=== PATIENT | female | born 1950 | race Caucasian/White ===

== ENCOUNTER → 2022-08-20 11:27 | Outpatient (BNVA) | payer MEDICARE, OTHER, SELFPAY | PROVIDERS: PCP Physician Assistant; Visit Provider Student in an Organized Health Care Education/Training Program | DX: M06.9 Rheumatoid arthritis, unspecified (principal); M81.0 Age-related osteoporosis without current pathological fracture; Z79.631 Long term (current) use of antimetabolite agent | CPT/HCPCS: 99202 ==

== ENCOUNTER → 2022-11-08 09:46 | Outpatient (BNVA) | payer MEDICARE, OTHER, SELFPAY | PROVIDERS: PCP Physician Assistant; Visit Provider Student in an Organized Health Care Education/Training Program | DX: M06.9 Rheumatoid arthritis, unspecified (principal); M81.0 Age-related osteoporosis without current pathological fracture; Z79.631 Long term (current) use of antimetabolite agent | CPT/HCPCS: 99212 ==

== ENCOUNTER 2023-02-21 07:51 | Outpatient (AMB) | payer MEDICARE, OTHER, SELFPAY ==
--- NOTE | 2023-02-21 07:54 | A.OFFVIS_ITS ---
Intake Vital Signs 02/21/23 07:55 Height 5 ft 7 in Weight 243 lb 9.773 oz BMI 38.2 BP 122/74 Blood Pressure Location Lt brachial Position Sitting Pulse 92 Pulse Source Pulse Oximeter Temp 97.1 F Temp Source Skin Pulse Oximetry (%) 95 Intake Visit Reasons: RA Intake Note: * Pt seen today for RA follow up. * Denies new or increased joint pain. * Reports recent tick bite end of January, given doxy for 10 days finished 02/07/23. Thermometer Production Worker Required: No Accompanied by: Self / Same As Patient Allergies epinephrine Allergy (Intermediate, Verified 02/21/23 07:57) shaky, palpitations,ineffective Medication List - Last Reconciled 02/21/23 by Mima Domingo MD acetaminophen (Tylenol Extra Strength) 500 mg PO Q6H PRN calcium carbonate (Calcium) 600 mg PO DAILY latanoprost 0.005% 1 drp ophthalmic (eye) QPM leucovorin calcium 10 mg (2 x 5 mg) PO QWEEK methotrexate sodium 17.5 mg (7 x 2.5 mg) PO QWEEK hvqibpvi-mozikrq-euvd-lutein 1 tab PO DAILY prednisone 3 mg (3 x 1 mg) PO DAILY tocilizumab (Actemra ACTPen) 162 mg (0.9 mL) subcut Q2W HPI HPI Comments History of Present Illness Details 72-year-old female with seropositive deforming RA returns for follow- up. She has started Actemra after last visit. Patient states that she feels about the same overall. She gets intermittent swelling in aches that is worse with warm weather. She is tolerating methotrexate and Actemra well. Initial history: This is a 72-year-old female with erosive deforming RA who presents as a new patient. 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 Patient used to see Dr. March for many years followed by Dr. Damon more recently. She was diagnosed with RA in June of 2000. She was initially started on methotrexate and prednisone. They were ineffective she was then switched to infusions at patient could not specify. She was doing very well on Enbrel from 2001 until 2013. There was a lapse in medical follow-up. From [id number]. In 2018 she was started on Orencia and methotrexate was added in 2019. Patient states that her RA is doing well overall. She states she no longer has those severe flares. She has not had a major flare in many years. Her main complaint is her bilateral feet pain. This started 4-5 years ago. She has bilateral foot deformities. She also has calluses at the bottom of her feet. She was evaluated by Podiatry and she gets these calluses shaved off every once in a while and she wears shoes with arch support. [facility] Medical History Anxiety Encounter for screening for other viral diseases Major depression Ocular hypertension Open-angle glaucoma Premature menopause Psychophysiologic disorder Rheumatoid arthritis Tobacco abuse Surgical History History of cataract surgery Family History Mother Diabetes Father Lung cancer Bone cancer Osteoporosis Sister Ovarian cancer Social History Household Members: Other Household Members Other:: alone Housing: Apartment Patient Tobacco Use Status: Former Tobacco user Years Smoked: 44 years Current occupational status: retired Review of Systems Card Denies dyspnea Resp Denies dyspnea Musc Reports deformity, Reports arthralgias and Reports stiffness Physical Exam Vital Signs: Last Vital Signs Temp 97.1 F 02/21/23 07:55 Pulse 92 02/21/23 07:55 BP 122/74 02/21/23 07:55 Pulse Ox 95 02/21/23 07:55 BMI result Body Mass Index 38.2 Const General: cooperative, healthy appearing, comfortable and no acute distress Nutritional Appearance: obese Orientation/consciousness: patient oriented x3 Limitations: no limitations HEENT Head: Yes normocephalic and Yes atraumatic Mouth: moist mucous membranes Resp Effort & Inspection: normal respiratory effort and able to speak in complete sentences Auscultation: clear to auscultation bilaterally Cardio Rate: regular rate Rhythm: regular rhythm Neuro General: patient oriented x3 Extrem Other: Hands: Significant bilateral RA deformities with ulnar deviation, MCP subluxation and MCP synovial thickening, no tenderness to palpation. Negative MCP squeeze test Feet: Significant bilateral RA deformity with fibular deviation and hammertoes as well as claw feet, calluses at the bottom of her feet, slightly tender Results Reviewed Results Reviewed: DEXA 05/2019:? Hip -3.1 Bilateral foot x-rays 01/2022? Impression:? No acute bone abnormality.? Subluxation of the digits, osteopenia and calcaneal spurring, likely related to the patient's rheumatoid arthritis Bilateral hand x-rays 01/2022? Impression:? No acute bone abnormality.? Bilateral degenerative changes including subluxation which can be seen with rheumatoid arthritis.? The distribution has not significantly changed since 2018 however the severity appears slightly increased. Labs 01/2022? CRP 11.8 (<9) CMP unremarkable? ESR 24? CBC unremarkable QuantiFERON gold negative Labs 08/30/2022 ESR 30 CRP 15.7 (0-4.0) Hepatitis panel negative CMP unremarkable? CBC unremarkable Assessment & Plan Assessment & Plan (1) Rheumatoid arthritis: Comment: +++RF+++CCPDiagnosed 06/2020 erosive Prednisone and methotrexate started in 1999, ineffective Switched to infusions which are not specified, not effective Enbrel started 2001 until 2013 effective until it has lost its efficacy and patient developed a psoriasis like rash Orencia since July of 2018 Methotrexate added in 2019 Code(s): M06.9 - Rheumatoid arthritis, unspecified Qualifiers: Rheumatoid arthritis location: multiple sites Rheumatoid factor presence: unspecified presence Qualified Code(s): M06.9 - Rheumatoid arthritis, unspecified Plan: 72-year-old female with seropositive deforming RA presents for follow-up. Doing better since Actemra started 3 months ago. Improved overall stiffness and normalization of inflammatory markers. Continue methotrexate 17.5 mg once weekly and Actemra 162 mg every other week Continue prednisone 3 mg daily, plan to taper next visit Will discuss screening for ILD next visit Labs before next visit in 3 months (2) Methotrexate, care home, current use: Code(s): Z79.631 - intermediate frame tender (current) use of antimetabolite agent Plan: Side effects of methotrexate were discussed with the patient in detail including oral ulcers, elevated LFTs, abdominal discomfort, and possible pancytopenia is. Will monitor patient for side effects with frequent lab work. Advised patient to take Leucovorin once weekly (3) Osteoporosis: Comment: DEXA 2018 T-score-3.1 left hip Alendronate stopped due to GI upset DEXA 01/24 T-score -2.8 Code(s): M81.0 - Age-related osteoporosis without current pathological fracture Qualifiers: Osteoporosis type: age-related Presence of current pathological fractu re: without current pathological fracture Qualified Code(s): M81.0 - Age- related osteoporosis without current pathological fracture Plan: Most recent DEXA scan shows osteoporosis. Patient will need antiresorptive treatment as she has osteoporosis in addition to long-term use of steroids and rheumatoid arthritis. Discussed risks and benefits of Reclast. Patient agreed to proceed. Will start prior authorization for Reclast Vitamin-D level normal 02/23 Plan I spent 29 minutes reviewing patient's chart, evaluating patient, ordering diagnostic workup, counseling patient and documenting in the chart Orders: Orders Comprehensive Met. Panel 3 Months M06.9 - Rheumatoid arthritis, unspecified C Reactive Protein 3 Months M06.9 - Rheumatoid arthritis, unspecified Complete Blood Count Auto Diff 3 Months M06.9 - Rheumatoid arthritis, unspecified Erythrocyte Sedimentation Rate 3 Months M06.9 - Rheumatoid arthritis, unspecified Coding Level of Care Code Est Pt Level 4 (41742) Diagnoses Rheumatoid arthritis M06.9 Rheumatoid arthritis location: multiple sites Rheumatoid factor presence: unspecified presence Methotrexate, care home, current use Z79.631 Osteoporosis M81.0 Osteoporosis type: age-related Presence of current pathological fracture: without current pathological fracture
[2023-02-21 07:55] VITALS: BP 122/74; PULSE 92; TEMP 36.2; O2SAT 95; BMI 38.2
== END 2023-02-21 08:30 | disposition home or self-care (01) ==
PROVIDERS: PCP Physician Assistant; Visit Provider Student in an Organized Health Care Education/Training Program
DX: M06.9 Rheumatoid arthritis, unspecified (principal); Z79.631 Long term (current) use of antimetabolite agent; M81.0 Age-related osteoporosis without current pathological fracture
CPT/HCPCS: 99214

== ENCOUNTER → 2023-02-21 07:51 | Outpatient (BNVA) | payer MEDICARE, OTHER, SELFPAY | PROVIDERS: PCP Physician Assistant; Visit Provider Student in an Organized Health Care Education/Training Program | DX: M06.9 Rheumatoid arthritis, unspecified (principal); M81.0 Age-related osteoporosis without current pathological fracture; Z79.52 Long term (current) use of systemic steroids; Z79.631 Long term (current) use of antimetabolite agent | CPT/HCPCS: 99212 ==

== ENCOUNTER 2023-07-04 13:26 | Outpatient (AMB) | payer MEDICARE, OTHER, SELFPAY ==
--- NOTE | 2023-07-04 13:27 | A.OFFVIS_ITS ---
Intake Vital Signs 07/04/23 13:28 Height 5 ft 7 in Weight 250 lb 3.594 oz BMI 39.2 BP 134/70 Blood Pressure Location Rt brachial Position Sitting Pulse 100 Pulse Source Pulse Oximeter Pulse Oximetry (%) 97 Oxygen Delivery Method Room Air Intake Visit Reasons: RA Intake Note: Pt last seen 02/21/23, presents today for follow up and test results. Actemra 162 mg, mtx 17.5mg and prednisone 3mg daily. 04/23/23 appt for reclast infusion was cancelled due to pt illness, she would like to wait until the spring time. Cable Operator Required: No Accompanied by: Self / Same As Patient Allergies epinephrine Allergy (Intermediate, Verified 07/04/23 13:35) shaky, palpitations,ineffective Medication List - Last Reconciled 07/04/23 by Mima Domingo MD acetaminophen (Tylenol Extra Strength) 500 mg PO Q6H PRN Actemra ACTPen (tocilizumab) 162 mg (0.9 mL) subcut Q2W NS calcium carbonate (Calcium) 600 mg PO DAILY leucovorin calcium 10 mg (2 x 5 mg) PO QWEEK methotrexate sodium 17.5 mg (7 x 2.5 mg) PO QWEEK rrfcquxu-mtnqpqp-ecvm-lutein 1 tab PO DAILY prednisone 3 mg (3 x 1 mg) PO DAILY HPI HPI Comments History of Present Illness Details 72-year-old female with seropositive def orming RA returns for follow- up. She is on methotrexate 7 tabs once weekly, Leucovorin , prednisone 3 mg daily and Actemra 162 mg every other week. She states that she was doing well overall until 1 week ago when she started having significant pain in her MCPs 2nd and 3rd MCPs bilaterally. About a week ago she twisted her back while getting out of the shower, she has been having right lower back pain for the past few days but it is improving now. She denies any cough or shortness of breath. Denies any alcohol consumption. Except for 1 beer 2 weeks ago Initial history: This is a 72-year-old female with erosive deforming RA who presents as a new patient. 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 Patient used to see Dr. March for many years followed by Dr. Damon more recently. She was diagnosed with RA in June of 2000. She was initially started on methotrexate and prednisone. They were ineffective she was then switched to infusions at patient could not specify. She was doing very well on Enbrel from 2001 until 2013. There was a lapse in medical follow-up. From [id number]. In 2018 she was started on Orencia and methotrexate was added in 2019. Patient states that her RA is doing well overall. She states she no longer has those severe flares. She has not had a major flare in many years. Her main complaint is her bilateral feet pain. This started 4-5 years ago. She has bilateral foot deformities. She also has calluses at the bottom of her feet. She was evaluated by Podiatry and she gets these calluses shaved off every once in a while and she wears shoes with arch support. [facility] Medical History (Updated 07/04/23 @ 14:10 by Mima Domingo MD) Encounter for screening for other viral diseases Psychophysiologic disorder Premature menopause Rheumatoid arthritis Open-angle glaucoma Ocular hypertension Tobacco abuse Anxiety Major depression Surgical History History of cataract surgery Family History Mother Diabetes Father Lung cancer Bone cancer Osteoporosis Sister Ovarian cancer Social History Household Members: Other Household Members Other:: alone Housing: Apartment Patient Tobacco Use Status: Former Tobacco user Years Smoked: 44 years Current occupational status: retired Review of Systems Card Denies dyspnea Resp Denies cough and Denies dyspnea Musc Reports back pain, Reports deformity, Reports arthralgias and Reports stiffness Physical Exam Vital Signs: Last Vital Signs Pulse 100 07/04/23 13:28 BP 134/70 07/04/23 13:28 Pulse Ox 97 07/04/23 13:28 Oxygen Delivery Method Room Air 07/04/23 13:28 BMI result Body Mass Index 39.2 Const General: cooperative, healthy appearing, comfortable and no acute distress Nutritional Appearance: obese Orientation/consciousness: patient oriented x3 Limitations: no limitations HEENT Head: Yes normocephalic and Yes atraumatic Mouth: moist mucous membranes Resp Effort & Inspection: normal respiratory effort and able to speak in complete sentences Auscultation: clear to auscultation bilaterally Cardio Rate: regular rate Rhythm: regular rhythm Neuro General: patient oriented x3 Extrem Other: Hands: Significant bilateral RA deformities with ulnar deviation, reducible, MCP subluxation and MCP synovial thickening. Today patient has bilateral 2nd and 3rd MCP swelling and tenderness. Feet: Significant bilateral RA deformity with fibular deviation and hammertoes as well as claw feet, calluses at the bottom of her feet, slightly tender Results Reviewed Results Reviewed: DEXA 05/2019:? Hip -3.1 Bilateral foot x-rays 01/2022? Impression:? No acute bone abnormality.? Subluxation of the digits, osteopenia and calcaneal spurring, likely related to the patient's rheumatoid arthritis Bilateral hand x-rays 01/2022? Impression:? No acute bone abnormality.? Bilateral degenerative changes including subluxation which can be seen with rheumatoid arthritis.? The distribution has not significantly changed since 2018 however the severity appears slightly increased. Labs 01/2022? CRP 11.8 (<9) CMP unremarkable? ESR 24? CBC unremarkable QuantiFERON gold negative Labs 08/30/2022 ESR 30 CRP 15.7 (0-4.0) Hepatitis panel negative CMP unremarkable? CBC unremarkable Assessment & Plan Assessment & Plan (1) Rheumatoid arthritis: Comment: +++RF+++CCPDiagnosed 06/2020 erosive Prednisone and methotrexate started in 1999, ineffective Switched to infusions which are not specified, not effective Enbrel started 2001 until 2013 effective until it has lost its efficacy and patient developed a psoriasis like rash Orencia since July of 2018. DC 11/2022 Methotrexate added in 2019 Actemra 11/2022 effective Code(s): M06.9 - Rheumatoid arthritis, unspecified Qualifiers: Rheumatoid arthritis location: multiple sites Rheumatoid factor presence: unspecified presence Qualified Code(s): M06.9 - Rheumatoid arthritis, unspecified Plan: 72-year-old female with seropositive deforming RA presents for follow-up. On Actemra 162 mg every other week, methotrexate 17.5 mg weekly, prednisone 3 mg daily, Leucovorin 10 mg weekly. Doing well overall except for a flare-up that started last week. Her inflammatory markers are normal. Will start a short prednisone taper. Advised patient to go back to her 3 mg of prednisone months taper is completed Continue same medications otherwise. Will consider advancing Actemra to weekly dosing if patient has recurrent flares Discussed RA ILD screening. Will order a PFT Labs before next visit in 3 months (2) Methotrexate, snf, current use: Code(s): Z79.631 - MCFP (current) use of antimetabolite agent Plan: Side effects of methotrexate were discussed with the patient in detail including oral ulcers, elevated LFTs, abdominal discomfort, and possible pancytopenia is. Will monitor patient for side effects with frequent lab work. Advised patient to take Leucovorin once weekly (3) Osteoporosis: Comment: DEXA 2018 T-score-3.1 left hip Alendronate [id number] stopped due to GI upset DEXA 01/24 T-score -2.8 Code(s): M81.0 - Age-related osteoporosis without current pathological fracture Qualifiers: Osteoporosis type: age-related Presence of current pathological fracture: without current pathological fracture Qualified Code(s): M81.0 - Age- related osteoporosis without current pathological fracture Plan: Most recent DEXA scan shows osteoporosis. Patient will need antiresorptive treatment as she has osteoporosis in addition to long-term use of steroids and rheumatoid arthritis. Reclast was approved. Patient canceled her scheduled infusion as she was not feeling well. Advised patient to reschedule Vitamin-D level normal 02/23 (4) Transaminitis: Code(s): R74.01 - Elevation of levels of liver transaminase levels Plan: Minimal ALT elevation. No recent alcohol consumption. Will monitor. If liver enzymes remain elevated, will lower methotrexate dose (5) Immunization counseling: Code(s): Z71.85 - Encounter for immunization safety counseling Plan: Discussed ACR vaccination guidelines for adults with autoimmune rheumatic disease. Patient received the new COVID booster and flu vaccine for this season. She is also up-to-date on pneumonia vaccine and shingrix vaccines. Patient inquired about RSV vaccine. Advised patient to hold 1 methotrexate dose after RSV vaccination Plan I spent 45 minutes reviewing patient's chart, evaluating patient, ordering diagnostic workup, counseling patient and documenting in the chart Orders: Orders C Reactive Protein 3 Months Z79.631 - MCFP (current) use of antimetabolite agent Erythrocyte Sedimentation Rate 3 Months Z79.631 - salvage determiner (current) use of antimetabolite agent PFT pulmonary function test Today R06.02 - Shortness of breath Complete Blood Count Auto Diff 3 Months Z79.631 - MCFP (current) use of antimetabolite agent Comprehensive Met. Panel 3 Months Z79.631 - salvage determiner (current) use of antimetabolite agent Medications: New prednisone Take 2 tabs daily for 1 week then 1 tab daily for 1 week then stop 21 tabs 0RF Coding Level of Care Code Est Pt Level 5 (00240) Diagnoses Rheumatoid arthritis involving multiple sites, unspecified whether rheumatoid factor present M06.9 Rheumatoid arthritis location: multiple sites Rheumatoid factor presence: unspecified presence Methotrexate, predatory animal exterminator, current use Z79.631 Age-related osteoporosis without current pathological fracture M81.0 Osteoporosis type: age-related Presence of current pathological fracture: without current pathological fracture Transaminitis R74.01 Immunization counseling Z71.85
[2023-07-04 13:28] VITALS: BP 134/70; PULSE 100; O2SAT 97; BMI 39.2
== END 2023-07-04 13:58 | disposition home or self-care (01) ==
PROVIDERS: PCP Physician Assistant; Visit Provider Student in an Organized Health Care Education/Training Program
DX: M06.09 Rheumatoid arthritis without rheumatoid factor, multiple sites (principal); Z79.631 Long term (current) use of antimetabolite agent; M81.0 Age-related osteoporosis without current pathological fracture; R74.01 Elevation of levels of liver transaminase levels; Z71.85 Encounter for immunization safety counseling
CPT/HCPCS: 99215

== ENCOUNTER → 2023-07-04 13:26 | Outpatient (BNVA) | payer MEDICARE, OTHER, SELFPAY | PROVIDERS: PCP Physician Assistant; Visit Provider Student in an Organized Health Care Education/Training Program | DX: M06.9 Rheumatoid arthritis, unspecified (principal); M81.0 Age-related osteoporosis without current pathological fracture; R74.01 Elevation of levels of liver transaminase levels; Z79.631 Long term (current) use of antimetabolite agent; Z71.85 Encounter for immunization safety counseling | CPT/HCPCS: 99212 ==

== ENCOUNTER 2023-10-15 13:28 | Outpatient (AMB) | payer MEDICARE, OTHER, SELFPAY ==
[2023-10-15 13:30] VITALS: BP 118/62; PULSE 101; O2SAT 98; BMI 39.5
--- NOTE | 2023-10-15 13:30 | MHC.OFFVIS ---
Intake Vital Signs 10/15/23 13:30 Height 5 ft 7 in Weight 252 lb 6.868 oz BMI 39.5 BP 118/62 Blood Pressure Location Lt brachial Position Sitting Pulse 101 H Pulse Source Pulse Oximeter Pulse Oximetry (%) 98 Oxygen Delivery Method Room Air Intake Visit Reasons: RA Intake Note: Patient last seen 07/04/23 presents today for follow up and test results. S/P covid in July. Reports Glaucoma, pressure in eyes increasing; using drops and will have laser tx. Follows with [facility] in [place]. 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: No Accompanied by: Self / Same As Patient Allergies epinephrine Allergy (Intermediate, Verified 10/15/23 13:43) shaky, palpitations,ineffective Medication List - Last Reconciled 10/15/23 by Mima Domingo MD acetaminophen (Tylenol Extra Strength) 500 mg PO Q6H PRN Actemra ACTPen (tocilizumab) 162 mg (0.9 mL) subcut Q2W NS calcium carbonate (Calcium) 600 mg PO DAILY latanoprost 0.005% 1 drp ophthalmic (eye) DAILY leucovorin calcium 10 mg (2 x 5 mg) PO QWEEK methotrexate sodium 17.5 mg (7 x 2.5 mg) PO QWEEK rjqichbm-kqlierj-fruq-lutein 1 tab PO DAILY prednisone 3 mg (3 x 1 mg) PO DAILY HPI HPI Comments History of Present Illness Details 73-year-old female with seropositive deforming RA returns for follow-up. She is on methotrexate 7 tabs once weekly, Leucovorin weekly, prednisone 3 mg daily and Actemra 162 mg every other week. She states that in July she had COVID infection and was quite sick at home for at least 3 weeks. She skipped 1 dose of her Actemra. Currently she feels better overall. She denies any joint pain or swelling. She noticed however that her left hand is turning outwards. She denies any swelling in the hands. She has noted some right ankle and calf swelling. Without pain. She has not done the PFTs yet as she was recovering from COVID. Now she feels that her breathing is almost back to baseline. She denies any cough. She has not scheduled her Reclast infusion yet. Initial history: This is a 72-year-old female with erosive deforming RA who presents as a new patient. 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 Patient used to see Dr. March for many years followed by Dr. Damon more recently. She was diagnosed with RA in June of 2000. She was initially started on methotrexate and prednisone. They were ineffective she was then switched to infusions at patient could not specify. She was doing very well on Enbrel from 2001 until 2013. There was a lapse in medical follow-up. From [id number]. In 2018 she was started on Orencia and methotrexate was added in 2019. Patient states that her RA is doing well overall. She states she no longer has those severe flares. She has not had a major flare in many years. Her main complaint is her bilateral feet pain. This started 4-5 years ago. She has bilateral foot deformities. She also has calluses at the bottom of her feet. She was evaluated by Podiatry and she gets these calluses shaved off every once in a while and she wears shoes with arch support. [facility] Medical History Encounter for screening for other viral diseases Psychophysiologic disorder Premature menopause Rheumatoid arthritis Open-angle glaucoma Ocular hypertension Tobacco abuse Anxiety Major depression Surgical History History of cataract surgery Family History Mother Diabetes Father Lung cancer Bone cancer Osteoporosis Sister Ovarian cancer Social History Household Members: Other Household Members Other:: alone Housing: Apartment Patient Tobacco Use Status: Former Tobacco user Years Smoked: 44 years Current occupational status: retired Review of Systems Card Denies dyspnea Resp Denies cough and Denies dyspnea Musc Reports deformity, Reports joint swelling and Reports stiffness Physical Exam Vital Signs: Last Vital Signs Pulse 101 H 10/15/23 13:30 BP 118/62 10/15/23 13:30 Pulse Ox 98 10/15/23 13:30 Oxygen Delivery Method Room Air 10/15/23 13:30 BMI result Body Mass Index 39.5 Const General: cooperative, healthy appearing, comfortable and no acute distress Nutritional Appearance: obese Orientation/consciousness: patient oriented x3 Limitations: no limitations HEENT Head: Yes normocephalic and Yes atraumatic Mouth: moist mucous membranes Resp Effort & Inspection: normal respiratory effort and able to speak in complete sentences Auscultation: clear to auscultation bilaterally Cardio Rate: regular rate Rhythm: regular rhythm Neuro General: patient oriented x3 Extrem Other: Hands: Significant bilateral RA deformities with ulnar deviation, reducible, MCP subluxation and MCP synovial thickening. There is no active synovitis however Feet: Significant bilateral RA deformity with fibular deviation and hammertoes as well as claw feet, calluses at the bottom of her feet, slightly tender Mild right leg swelling, mild right leg warmth, no erythema or tenderness Results Reviewed Results Reviewed: DEXA 05/2019:? Hip -3.1 Bilateral foot x-rays 01/2022? Impression:? No acute bone abnormality.? Subluxation of the digits, osteopenia and calcaneal spurring, likely related to the patient's rheumatoid arthritis Bilateral hand x-rays 01/2022? Impression:? No acute bone abnormality.? Bilateral degenerative changes including subluxation which can be seen with rheumatoid arthritis.? The distribution has not significantly changed since 2018 however the severity appears slightly increased. Labs 01/2022? CRP 11.8 (<9) CMP unremarkable? ESR 24? CBC unremarkable QuantiFERON gold negative Labs 08/30/2022 ESR 30 CRP 15.7 (0-4.0) Hepatitis panel negative CMP unremarkable? CBC unremarkable Assessment & Plan Assessment & Plan (1) Rheumatoid arthritis: Comment: +++RF+++CCPDiagnosed 06/2020 erosive Prednisone and methotrexate started in 1999, ineffective Switched to infusions which are not specified, not effective Enbrel started 2001 until 2013 effective until it has lost its efficacy and patient developed a psoriasis like rash Orencia since July of 2018. DC 11/2022 Methotrexate added in 2019 Actemra 11/2022 effective Code(s): M06.9 - Rheumatoid arthritis, unspecified Qualifiers: Rheumatoid arthritis location: multiple sites Rheumatoid factor presence: unspecified presence Qualified Code(s): M06.9 - Rheumatoid arthritis, unspecified Plan: 73-year-old female with seropositive deforming RA presents for follow-up. On Actemra 162 mg every other week, methotrexate 17.5 mg weekly, prednisone 3 mg daily, Leucovorin 10 mg weekly. Doing well overall. No active synovitis on exam. Patient has noticed slightly progressive ulnar deviation of left hand fingers. We discussed hand surgery evaluation. Patient was not interested at this time. 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 Will monitor patient for side effects with frequent lab work. Advised patient to take Leucovorin once weekly (3) Osteoporosis: Comment: DEXA 2018 T-score-3.1 left hip Alendronate [id number] stopped due to GI upset DEXA 01/24 T-score -2.8 Code(s): M81.0 - Age-related osteoporosis without current pathological fracture Qualifiers: Osteoporosis type: age-related Presence of current pathological fracture: without current pathological fracture Qualified Code(s): M81.0 - Age-related osteoporosis without current pathological fracture Plan: Most recent DEXA scan shows osteoporosis. Patient will need antiresorptive treatment as she has osteoporosis in addition to long-term use of steroids and rheumatoid arthritis. Reclast was approved. Patient canceled her scheduled infusion as she was not feeling well. Advised patient to reschedule Vitamin-D level normal 02/23 (4) Transaminitis: Code(s): R74.01 - Elevation of levels of liver transaminase levels Plan: Resolved (5) Right leg swelling: Code(s): M79.89 - Other specified soft tissue disorders Plan: Order bilateral lower extremity venous duplex to rule out DVT Plan I spent 45 minutes reviewing patient's chart, evaluating patient, ordering diagnostic workup, counseling patient and documenting in the chart Orders: Orders C Reactive Protein 3 Months M06.9 - Rheumatoid arthritis, unspecified, Z79.631 - media senior recruiter (current) use of antimetabolite agent US venous duplex LE BI Today I82.401 - Acute embolism and thrombosis of unspecified deep veins of right lower extremity Complete Blood Count Auto Diff 3 Months M06.9 - Rheumatoid arthritis, unspecified, Z79.631 - [facility] (current) use of antimetabolite agent Comprehensive Met. Panel 3 Months M06.9 - Rheumatoid arthritis, unspecified, Z79.631 - media senior recruiter (current) use of antimetabolite agent Erythrocyte Sedimentation Rate 3 Months M06.9 - Rheumatoid arthritis, unspecified, Z79.631 - media senior recruiter (current) use of antimetabolite agent Medications: Refilled Actemra ACTPen (tocilizumab) 162 mg (0.9 mL) subcut Q2W 5.4 mL 0RF NS Coding Level of Care Code Est Pt Level 5 (74533) Diagnoses Rheumatoid arthritis involving multiple sites, unspecified whether rheumatoid factor present M06.9 Rheumatoid arthritis location: multiple sites Rheumatoid factor presence: unspecified presence 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
== END 2023-10-15 14:05 | disposition home or self-care (01) ==
PROVIDERS: PCP Physician Assistant; Visit Provider Student in an Organized Health Care Education/Training Program
DX: M06.9 Rheumatoid arthritis, unspecified (principal); Z79.631 Long term (current) use of antimetabolite agent; M81.0 Age-related osteoporosis without current pathological fracture; R74.01 Elevation of levels of liver transaminase levels; M79.89 Other specified soft tissue disorders
CPT/HCPCS: 99214

== ENCOUNTER 2023-10-15 14:22 | Outpatient (REF) | payer MEDICARE, OTHER, SELFPAY ==
--- NOTE | ~2023-10-15 | US_ITS ---
EXAMINATION: US VENOUS ULTRASOUND WITH DOPPLER LOWER EXTREMITY, BILATERAL CLINICAL INFORMATION: Acute embolism and thrombosis of unspecified deep veins COMPARISON: None available. TECHNIQUE: Ultrasound of the deep veins is performed from the hip to the calf with compression sonography and color and pulse Doppler assessment. Spectral analysis with color-flow imaging is performed. FINDINGS: RIGHT: There is normal venous compression and respiratory variation and augmented flow. The visualized common femoral vein, superficial femoral vein, profunda femoral vein, popliteal vein, and the trifurcation region shows no evidence of deep venous thrombosis. Distal posterior tibial vein seen. Peripheral vein is not seen. There is no significant popliteal fossa cyst. LEFT: There is normal venous compression and respiratory variation and augmented flow. The visualized common femoral vein, superficial femoral vein, profunda femoral vein, popliteal vein, and the trifurcation region shows no evidence of deep venous thrombosis. The distal posterior tibial vein is seen. The peroneal vein is not visualized. There is a fluid collection medial to the popliteal fossa measuring 3.2 x 1.1 x 1.0 cm. If the patient's symptoms persist, followup ultrasound in 5 days 7 days might be of value to exclude proximal propagation from a non-visualized calf vein. US/US venous duplex LE BI IMPRESSION: No DVT demonstrated in the bilateral lower extremity. Both peroneal veins are not seen. There is a likely small medial popliteal fossa cyst left leg.
== END 2023-10-15 14:23 | disposition home or self-care (01) ==
LOC: HO.US 14:22
PROVIDERS: PCP Physician Assistant; Visit Provider Student in an Organized Health Care Education/Training Program
DX: I82.401 Acute embolism and thrombosis of unspecified deep veins of right lower extremity (principal)
CPT/HCPCS: 93970; 99212

== ENCOUNTER 2024-01-19 10:17 | Outpatient (AMB) | payer MEDICARE, OTHER, SELFPAY ==
[2024-01-19 10:18] VITALS: BP 114/82; PULSE 98; O2SAT 96; BMI 39.8
--- NOTE | 2024-01-19 10:18 | A.OFFVIS_ITS ---
Vital Signs 01/19/24 10:18 Height 5 ft 7 in Weight 254 lb 6.615 oz BMI 39.8 BP 114/82 Blood Pressure Location Rt brachial Position Sitting Pulse 98 Pulse Source Pulse Oximeter Pulse Oximetry (%) 96 Oxygen Delivery Method Room Air Intake Visit Reasons: RA Intake Note: Patient last seen 10/15/23 presents today for follow up and test results. Pt states she did not have her PFT done yet. Allergies epinephrine Allergy (Intermediate, Verified 01/19/24 10:21) shaky, palpitations,ineffective Medication List - Last Reconciled 01/19/24 by Mima Domingo MD acetaminophen (Tylenol Extra Strength) 500 mg PO Q6H PRN Actemra ACTPen (tocilizumab) 162 mg (0.9 mL) subcut Q2W NS calcium carbonate (Calcium 600) 600 mg PO DAILY latanoprost 0.005% 1 drp ophthalmic (eye) DAILY leucovorin calcium 10 mg (2 x 5 mg) PO QWEEK methotrexate sodium 17.5 mg (7 x 2.5 mg) PO QWEEK tooxnpsm-qpfdfax-lhws-lutein 1 tab PO DAILY prednisone 2 mg PO DAILY HPI Comments Details: 73-year-old female with seropositive deforming RA returns for follow-up. She is on methotrexate 7 tabs once weekly, Leucovorin weekly, prednisone 2 mg daily and Actemra 162 mg every other week. She states that she feels reasonably well overall. No significant difference. She has reduced her prednisone from 3 mg daily to 2 mg daily. She recently had a I procedure for her glaucoma. Patient states that it was not full and she is back on her glaucoma eyedrops. Initial history: This is a 72-year-old female with erosive deforming RA who presents as a new patient. Her previous ep specialist left the practice. Patient used to see Dr. March for many years followed by Dr. Damon more recently. She was diagnosed with RA in June of 2000. She was initially started on methotrexate and prednisone. They were ineffective she was then switched to infusions at patient could not specify. She was doing very well on Enbrel from 2001 until 2013. There was a lapse in medical follow-up. From [id number]. In 2018 she was started on Orencia and methotrexate was added in 2019. Patient states that her RA is doing well overall. She states she no longer has those severe flares. She has not had a major flare in many years. Her main complaint is her bilateral feet pain. This started 4-5 years ago. She has bilateral foot deformities. She also has calluses at the bottom of her feet. She was evaluated by Podiatry and she gets these calluses shaved off every once in a while and she wears shoes with arch support. [facility] Medical History (Updated 01/19/24 @ 10:41 by Mima Domingo MD) Psychophysiologic disorder Premature menopause Rheumatoid arthritis Open-angle glaucoma Ocular hypertension Tobacco abuse Anxiety Major depression Surgical History History of cataract surgery Family History Mother Diabetes Father Lung cancer Bone cancer Osteoporosis Sister Ovarian cancer Social History Household Members: Other Household Members Other:: alone Housing: Apartment Patient Tobacco Use Status: Former Tobacco user Years Smoked: 44 years Current occupational status: retired Review of Systems Card Denies dyspnea Resp Denies cough and Denies dyspnea Musc Reports deformity and Reports stiffness Physical Exam Vital Signs: Last Vital Signs Pulse 98 01/19/24 10:18 BP 114/82 01/19/24 10:18 Pulse Ox 96 01/19/24 10:18 Oxygen Delivery Method Room Air 01/19/24 10:18 BMI result Body Mass Index 39.8 Const General: cooperative, healthy appearing, comfortable and no acute distress Nutritional Appearance: obese Orientation/consciousness: patient oriented x3 Limitations: no limitations HEENT Head: Yes normocephalic and Yes atraumatic Mouth: moist mucous membranes Resp Effort & Inspection: normal respiratory effort and able to speak in complete sentences Auscultation: clear to auscultation bilaterally Cardio Rate: regular rate Rhythm: regular rhythm Neuro General: patient oriented x3 Extrem Other: Hands: Significant bilateral RA deformities with ulnar deviation, reducible, MCP subluxation and MCP synovial thickening. There is no active synovitis however Feet: Significant bilateral RA deformity with fibular deviation and hammertoes as well as claw feet, calluses at the bottom of her feet, slightly tender Bilateral leg swelling Results Reviewed Results Reviewed: DEXA 05/2019:? Hip -3.1 Bilateral foot x-rays 01/2022? Impression:? No acute bone abnormality.? Subluxation of the digits, osteopenia and calcaneal spurring, likely related to the patient's rheumatoid arthritis Bilateral hand x-rays 01/2022? Impression:? No acute bone abnormality.? Bilateral degenerative changes including subluxation which can be seen with rheumatoid arthritis.? The distribution has not significantly changed since 2018 however the severity appears slightly increased. Labs 01/2022? CRP 11.8 (<9) CMP unremarkable? ESR 24? CBC unremarkable QuantiFERON gold negative Labs 08/30/2022 ESR 30 CRP 15.7 (0-4.0) Hepatitis panel negative CMP unremarkable? CBC unremarkable Assessment & Plan Assessment & Plan (1) Rheumatoid arthritis: Comment: +++RF+++CCPDiagnosed 06/2020 erosive Prednisone and methotrexate started in 1999, ineffective Switched to infusions which are not specified, not effective Enbrel started 2001 until 2013 effective until it has lost its efficacy and patient developed a psoriasis like rash Orencia since July of 2018. DC 11/2022 Methotrexate added in 2019 Actemra 11/2022 effective Code(s): M06.9 - Rheumatoid arthritis, unspecified Category: Medical Qualifiers: Rheumatoid arthritis location: multiple sites Rheumatoid factor presence: unspecified presence Qualified Code(s): M06.9 - Rheumatoid arthritis, unspecified Plan: 73-year-old female with seropositive deforming RA presents for follow-up. On Actemra 162 mg every other week, methotrexate 17.5 mg weekly, prednisone 2 mg daily, Leucovorin 10 mg weekly. Doing well overall. No active synovitis on exam. 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 Will monitor patient for side effects with frequent lab work. Advised patient to take Leucovorin once weekly (3) Osteoporosis: Comment: DEXA 2019 T-score-3.1 left hip Alendronate [id number] stopped due to GI upset DEXA 01/24 T-score -2.8 Code(s): M81.0 - Age-related osteoporosis without current pathological fracture Category: Medical Qualifiers: Osteoporosis type: age-related Presence of current pathological fracture: without current pathological fracture Qualified Code(s): M81.0 - Age- related osteoporosis without current pathological fracture Plan: Most recent DEXA scan shows osteoporosis. Patient will need antiresorptive treatment as she has osteoporosis in addition to long-term use of steroids and rheumatoid arthritis. Reclast was approved. Patient canceled her Reclast infusion twice. Discussed the importance of osteoporosis treatment. Patient states that she is now focused on glaucoma issues and would like to postpone Reclast. Will discuss next visit Vitamin-D level normal 02/23 Plan I spent 45 minutes reviewing patient's chart, evaluating patient, ordering diagnostic workup, counseling patient and documenting in the chart Orders: Orders Complete Blood Count Auto Diff 4 Months M06.9 - Rheumatoid arthritis, unspecified, Z79.631 - assisted (current) use of antimetabolite agent C Reactive Protein 4 Months M06.9 - Rheumatoid arthritis, unspecified, Z79.631 - assisted (current) use of antimetabolite agent Comprehensive Met. 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 agent Erythrocyte Sedimentation Rate 4 Months M06.9 - Rheumatoid arthritis, unspecified, Z79.631 - assisted (current) use of antimetabolite agent Vitamin D 25-OH (D2 and D3) 4 Months E55.9 - Vitamin D deficiency, unspecified Medications: Refilled Actemra ACTPen (tocilizumab) 162 mg (0.9 mL) subcut Q2W 5.4 mL 0RF NS Coding Level of Care Code Est Pt Level 5 (65484) Complex EM visit Add On G2211 Diagnoses Rheumatoid arthritis involving multiple sites, unspecified whether rheumatoid factor present M06.9 Rheumatoid arthritis location: multiple sites Rheumatoid factor presence: unspecified presence Methotrexate, senior care, current use Z79.631 Age-related osteoporosis without current pathological fracture M81.0 Osteoporosis type: age-related Presence of current pathological fracture: without current pathological fracture
== END 2024-01-19 10:41 | disposition home or self-care (01) ==
PROVIDERS: PCP Physician Assistant; Visit Provider Student in an Organized Health Care Education/Training Program
DX: M06.9 Rheumatoid arthritis, unspecified (principal); Z79.631 Long term (current) use of antimetabolite agent; M81.0 Age-related osteoporosis without current pathological fracture
CPT/HCPCS: 99215; G2211

== ENCOUNTER → 2024-01-19 10:17 | Outpatient (BNVA) | payer MEDICARE, OTHER, SELFPAY | PROVIDERS: PCP Physician Assistant; Visit Provider Student in an Organized Health Care Education/Training Program | DX: M06.9 Rheumatoid arthritis, unspecified (principal); M81.0 Age-related osteoporosis without current pathological fracture; Z79.631 Long term (current) use of antimetabolite agent | CPT/HCPCS: 99212 ==

== ENCOUNTER 2024-05-19 10:08 | Outpatient (AMB) | payer MEDICARE, OTHER, SELFPAY ==
--- NOTE | 2024-05-19 10:18 | MHC.OFFVIS ---
Vital Signs 05/19/24 10:21 Height 5 ft 7 in Weight 252 lb 13.923 oz BMI 39.6 BP 120/68 Blood Pressure Location Rt brachial Position Sitting Pulse 96 Pulse Source Pulse Oximeter Pulse Oximetry (%) 98 Oxygen Delivery Method Room Air Intake Visit Reasons: RA Intake Note: Patient presents for RA. Allergies epinephrine Allergy (Intermediate, Verified 05/19/24 10:20) shaky, palpitations,ineffective Medication List - Last Reconciled 05/19/24 by Mima Domingo MD acetaminophen (Tylenol Extra Strength) 500 mg PO Q6H PRN Actemra ACTPen (tocilizumab) 162 mg (0.9 mL) subcut Q2W NS alendronate 10 mg PO QAM calcium carbonate (Calcium 600) 600 mg PO DAILY latanoprost 0.005% 1 drp ophthalmic (eye) DAILY leucovorin calcium 10 mg (2 x 5 mg) PO QWEEK methotrexate sodium 17.5 mg (7 x 2.5 mg) PO QWEEK mxacxivl-ztifqew-vpsh-lutein 1 tab PO DAILY HPI Comments Details: 73-year-old female with seropositive deforming RA returns for follow-up. She is on methotrexate 7 tabs once weekly, Leucovorin weekly, and Actemra 162 mg every other week. She states that she feels reasonably well overall. No significant difference. She had a flare-up of bilateral knee pain about a month ago. I prescribed her a short prednisone taper with resolution. Initial history: This is a 72-year-old female with erosive deforming RA who presents as a new patient. 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 Patient used to see Dr. March for many years followed by Dr. Damon more recently. She was diagnosed with RA in June of 2000. She was initially started on methotrexate and prednisone. They were ineffective she was then switched to infusions at patient could not specify. She was doing very well on Enbrel from 2001 until 2013. There was a lapse in medical follow-up. From [id number]. In 2018 she was started on Orencia and methotrexate was added in 2019. Patient states that her RA is doing well overall. She states she no longer has those severe flares. She has not had a major flare in many years. Her main complaint is her bilateral feet pain. This started 4-5 years ago. She has bilateral foot deformities. She also has calluses at the bottom of her feet. She was evaluated by Podiatry and she gets these calluses shaved off every once in a while and she wears shoes with arch support. [facility] Medical History (Updated 05/19/24 @ 11:04 by Mima Domingo MD) Bilateral knee swelling Psychophysiologic disorder Premature menopause Rheumatoid arthritis Open-angle glaucoma Ocular hypertension Tobacco abuse Anxiety Major depression Surgical History History of cataract surgery Family History Mother Diabetes Father Lung cancer Bone cancer Osteoporosis Sister Ovarian cancer Social History Household Members: Other Household Members Other:: alone Housing: Apartment Patient Tobacco Use Status: Former Tobacco user Years Smoked: 44 years Current occupational status: retired Review of Systems Card Denies dyspnea Resp Denies cough and Denies dyspnea Musc Reports deformity and Reports stiffness Physical Exam Vital Signs: Last Vital Signs Pulse 96 05/19/24 10:21 BP 120/68 05/19/24 10:21 Pulse Ox 98 05/19/24 10:21 Oxygen Delivery Method Room Air 05/19/24 10:21 BMI result Body Mass Index 39.6 Const General: cooperative, healthy appearing, comfortable and no acute distress Nutritional Appearance: obese Orientation/consciousness: patient oriented x3 Limitations: no limitations HEENT Head: Yes normocephalic and Yes atraumatic Mouth: moist mucous membranes Resp Effort & Inspection: normal respiratory effort and able to speak in complete sentences Auscultation: clear to auscultation bilaterally Cardio Rate: regular rate Rhythm: regular rhythm Neuro General: patient oriented x3 Extrem Other: Hands: Significant bilateral RA deformities with ulnar deviation, reducible, MCP subluxation and MCP synovial thickening. There is no active synovitis however Feet: Significant bilateral RA deformity with fibular deviation and hammertoes as well as claw feet, calluses at the bottom of her feet, slightly tender Pitting edema of both legs Bilateral knee pain with full flexion Results Reviewed Results Reviewed: Bilateral knee x-rays 04/2024? Impression 1. No evidence of acute fracture or malalignment 2. Bilateral tricompartmental degenerative change, most marked laterally? 3. Mixed density lesion within the right medial femoral condyle, most likely representing a bone infarct, less likely chondroid matrix lesion.? Complete characterization with MRI may be considered if clinically indicated Assessment & Plan Assessment & Plan (1) Rheumatoid arthritis: Comment: +++RF+++CCPDiagnosed 06/2020 erosive Prednisone and methotrexate started in 1999, ineffective Switched to infusions which are not specified, not effective Enbrel started 2001 until 2013 effective until it has lost its efficacy and patient developed a psoriasis like rash Orencia since July of 2018. DC 11/2022 Methotrexate added in 2019 Actemra 11/2022 effective Code(s): M06.9 - Rheumatoid arthritis, unspecified Category: Medical Qualifiers: Rheumatoid arthritis location: multiple sites Rheumatoid factor presence: unspecified presence Qualified Code(s): M06.9 - Rheumatoid arthritis, unspecified Plan: 73-year-old female with seropositive deforming RA presents for follow-up. On Actemra 162 mg every other week, methotrexate 17.5 mg weekly, Leucovorin 10 mg weekly. Prednisone has been tapered off. Patient had a flare-up of bilateral knee pain about a month ago treated with a short prednisone taper. On exam today there is no active synovitis. Her bilateral knee pain may be related to degenerative arthritis versus an RA flare. Continue Actemra 162 mg every other week Continue methotrexate 17.5 mg p.o. 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 Will monitor patient for side effects with frequent lab work. Advised patient to take Leucovorin once weekly (3) Osteoporosis: Comment: DEXA 2018 T-score-3.1 left hip Alendronate stopped due to GI upset DEXA 01/24 T-score -2.8 Code(s): M81.0 - Age-related osteoporosis without current pathological fracture Category: Medical Qualifiers: Osteoporosis type: age-related Presence of current pathological fracture: without current pathological fracture Qualified Code(s): M81.0 - Age-related osteoporosis without current pathological fracture Plan: Most recent DEXA scan shows osteoporosis. Patient will need antiresorptive treatment as she has osteoporosis in addition to long-term use of steroids and rheumatoid arthritis. Reclast was approved. Patient canceled her Reclast infusion twice. Discussed the importance of osteoporosis treatment. Patient could not tolerate weekly alendronate in the past. I will try alendronate 10 mg p.o. daily. (4) Bilateral primary osteoarthritis of knee: Code(s): M17.0 - Bilateral primary osteoarthritis of knee Category: Medical Plan: Continue Voltaren gel (5) Immunization counseling: Code(s): Z71.85 - Encounter for immunization safety counseling Category: Medical Plan: Advised patient to get both COVID and flu boosters in the same day. Skip 1 methotrexate dose after vaccinations. Advised patient to get RSV vaccine in in a different day. When methotrexate dose afterwards. Continue Actemra injection all through (6) Other specified disorders of bone density and structure, right lower leg: Code(s): M85.861 - Other specified disorders of bone density and structure, right lower leg Category: Medical Plan: Mixed density in the right medial femoral condyle. This area is not particularly symptomatic for patient. (7) Bilateral leg edema: Code(s): R60.0 - Localized edema Category: Medical Plan: Discussed different causes of leg edema including varicose veins, obesity as well as heart failure and others. Follow-up with PCP. I suggested evaluation by vein specialist. Patient declined Plan I spent 45 minutes reviewing patient's chart, evaluating patient, ordering diagnostic workup, counseling patient and documenting in the chart Orders: Orders Complete Blood Count Auto Diff 4 Months M06.9 - Rheumatoid arthritis, unspecified, Z79.631 - penitentiary (current) use of antimetabolite agent Erythrocyte Sedimentation Rate 4 Months M06.9 - Rheumatoid arthritis, unspecified, Z79.631 - penitentiary (current) use of antimetabolite agent Comprehensive Met. Panel 4 Months M06.9 - Rheumatoid arthritis, unspecified, Z79.631 - acquisition marketing coordinator (current) use of antimetabolite agent C Reactive Protein 4 Months M06.9 - Rheumatoid arthritis, unspecified, Z79.631 - acquisition marketing coordinator (current) use of antimetabolite agent Medications: New alendronate Take 1 tab once daily 1st thing in the morning, on an empty stomach, with a large glass of water (at least 6 oz) and stay upright for 30 minutes 10 mg PO QAM 30 tabs 3RF diclofenac sodium 1% apply to single knee, ankle, foot; for foot includes sole/toes/top of foot 4 grams topical QID 100 grams 2RF M17.0 - Bilateral primary osteoarthritis of knee Refilled Actemra ACTPen (tocilizumab) 162 mg (0.9 mL) subcut Q2W 5.4 mL 1RF NS Coding Level of Care Code Est Pt Level 5 (37107) Complex EM visit Add On G2211 Diagnoses Rheumatoid arthritis involving multiple sites, unspecified whether rheumatoid factor present M06.9 Rheumatoid arthritis location: multiple sites Rheumatoid factor presence: unspecified presence Methotrexate, fpc, current use Z79.631 Age-related osteoporosis without current pathological fracture M81.0 Osteoporosis type: age-related Presence of current pathological fracture: without current pathological fracture Bilateral primary osteoarthritis of knee M17.0 Immunization counseling Z71.85 Other specified disorders of bone density and structure, right lower leg M85.861 Bilateral leg edema R60.0
[2024-05-19 10:21] VITALS: BP 120/68; PULSE 96; O2SAT 98; BMI 39.6
== END 2024-05-19 10:56 | disposition home or self-care (01) ==
PROVIDERS: PCP Physician Assistant; Visit Provider Student in an Organized Health Care Education/Training Program
DX: M06.9 Rheumatoid arthritis, unspecified (principal); Z79.631 Long term (current) use of antimetabolite agent; M81.0 Age-related osteoporosis without current pathological fracture; M17.0 Bilateral primary osteoarthritis of knee; Z71.85 Encounter for immunization safety counseling; M85.861 Other specified disorders of bone density and structure, right lower leg; R60.0 Localized edema
CPT/HCPCS: 99215; G2211

== ENCOUNTER → 2024-05-19 10:08 | Outpatient (BNVA) | payer MEDICARE, OTHER, SELFPAY | PROVIDERS: PCP Physician Assistant; Visit Provider Student in an Organized Health Care Education/Training Program | DX: M06.9 Rheumatoid arthritis, unspecified (principal); M17.0 Bilateral primary osteoarthritis of knee; M81.0 Age-related osteoporosis without current pathological fracture; M85.861 Other specified disorders of bone density and structure, right lower leg; R60.0 Localized edema; Z71.85 Encounter for immunization safety counseling; Z79.631 Long term (current) use of antimetabolite agent | CPT/HCPCS: 99212 ==

== ENCOUNTER 2024-11-16 13:58 | Outpatient (AMB) | payer MEDICARE, OTHER, SELFPAY ==
[2024-11-16 14:03] VITALS: BP 128/72; PULSE 73; O2SAT 96; BMI 39.4
--- NOTE | 2024-11-16 14:03 | A.OFFVIS_ITS ---
Vital Signs 11/16/24 14:03 Height 5 ft 7 in Weight 251 lb 12.286 oz BMI 39.4 BP 128/72 Blood Pressure Location Lt brachial Position Sitting Pulse 73 Pulse Source Pulse Oximeter Pulse Oximetry (%) 96 Oxygen Delivery Method Room Air Intake Visit Reasons: RA Intake Note: Patient last seen by Doctor Mima Domingo on 05/19/24. Presents today for RA follow up and test result. Allergies epinephrine Allergy (Intermediate, Verified 11/16/24 14:14) shaky, palpitations,ineffective Medication List - Last Reconciled 11/16/24 by Jocelyne Thomas MD acetaminophen (Tylenol Extra Strength) 500 mg PO Q6H PRN Actemra ACTPen (tocilizumab) 162 mg (0.9 mL) subcut Q2W NS calcium carbonate (Calcium 600) 600 mg PO DAILY diclofenac sodium 1% 4 grams topical QID latanoprost 0.005% 1 drp ophthalmic (eye) DAILY leucovorin calcium 10 mg (2 x 5 mg) PO QWEEK methotrexate sodium 17.5 mg (7 x 2.5 mg) PO QWEEK jropuinq-vsgrbqz-vfmi-lutein 1 tab PO DAILY HPI Comments Details: Patient is a 74-year-old female with bilateral knee osteoarthritis, osteoporosis and seropositive deforming rheumatoid arthritis here today for follow up Interval History: Patient last seen with Dr. Domingo. At that time she was following up for her rheumatoid arthritis. She was on methotrexate 7 tabs once a week, leucovorin weekly and Actemra once he 2 mg every other week. She was feeling we will every well and had a resolving RA flare on steroid taper. With respect to her osteoporosis she refused Reclast infusion and could not tolerate alendronate weekly and so was switched to daily alendronate. Today, Doing well with her RA. No further flares since the last visit. Has AM stiffness that lasts all day but no swelling Knee OA - doing well, no complaints Osteroporosis - No falls since last visit - Did not start the alendronate due to concerns of GERD and dental procedures Rheumatologic History: +++RF+++CCPDiagnosed 06/2020 erosive Prednisone and methotrexate started in 1999, ineffective Switched to infusions which are not specified, not effective Enbrel started 2001 until 2013 effective until it has lost its efficacy and patient developed a psoriasis like rash Orencia since July of 2018. DC 11/2022 Methotrexate added in 2019 Actemra 11/2022 effective Initial history: This is a 72-year-old female with erosive deforming RA who presents as a new patient. 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 Patient used to see Dr. March for many years followed by Dr. Damon more recently. She was diagnosed with RA in June of 2000. She was initially started on methotrexate and prednisone. They were ineffective she was then switched to infusions at patient could not specify. She was doing very well on Enbrel from 2001 until 2013. There was a lapse in medical follow-up. From [id number]. In 2018 she was started on Orencia and methotrexate was added in 2019. Patient states that her RA is doing well overall. She states she no longer has those severe flares. She has not had a major flare in many years. Her main complaint is her bilateral feet pain. This started 4-5 years ago. She has bilateral foot deformities. She also has calluses at the bottom of her feet. She was evaluated by Podiatry and she gets these calluses shaved off every once in a while and she wears shoes with arch support. Current Rheumatology Medication(s): Methotrexate 70 more 5 mg every week Leucovorin 10 mg every week Actemra 162 mg SC every other week Alendronate 10 mg p.o. everyday [facility] Medical History (Updated 05/19/24 @ 11:04 by Mima Domingo MD) Bilateral knee swelling Psychophysiologic disorder Premature menopause Rheumatoid arthritis Open-angle glaucoma Ocular hypertension Tobacco abuse Anxiety Major depression Surgical History History of cataract surgery Family History Mother Diabetes Father Lung cancer Bone cancer Osteoporosis Sister Ovarian cancer Social History Household Members: Other Household Members Other:: alone Housing: Apartment Patient Tobacco Use Status: Former Tobacco user Years Smoked: 44 years Current occupational status: retired Review of Systems Const Details: Review of Systems Constitutional: Denies fever, chills, weight loss ENT: Denies vision changes, eye pain or eye redness, dental caries, dry mouth GI: Denies nausea, vomiting, diarrhea, abdominal pain, change in BM Pulm: Denies SOB, JIMENEZ, hemoptysis, wheezing Cards: Denies chest pain, palpitations Skin: Denies Raynaud's, rash, nail changes, photosensitivity, PYTHON WEB DEVELOPER: Denies headaches, weakness, paresthesias, recurrent falls MSK: as per HPI All other systems reviewed and are unremarkable except noted above Physical Exam Vital Signs: Last Vital Signs Pulse 73 11/16/24 14:03 BP 128/72 11/16/24 14:03 Pulse Ox 96 11/16/24 14:03 Oxygen Delivery Method Room Air 11/16/24 14:03 BMI result Body Mass Index 39.4 Vital signs reviewed Physical Examination CONSTITUITIONAL Patient alert and cooperative. Well appearing and in no apparent painful distress HEENT Conjunctiva and sclera clear. ?Pupils equal round and reactive to light. ?No lymphadenopathy. ? CHEST/RESPIRATORY SYSTEM Normal respiratory effort and able to speak in complete sentences. ?Clear to auscultation bilaterally. ?No crackles, rales, rhonchi, wheezes heard. CARDIAC SYSTEM Regular rate and rhythm. ?S1 and S2 heard no murmurs. ?Radial pulses intact bilaterally MSK Hands: ?Significant ulnar deviation of the level of the MCPs bilaterally non reducible. [place]-neck deformity to the left 5th and right 5th digits. No synovitis noted to the MCPs, PIPs or DIPs. Wrists: ?Decreased range of motion to the wrists bilaterally without evidence of synovitis. Elbows: Full range of motion without pain. No tenderness, weakness, swelling, increased warmth or erythema. Shoulders: Full range of motion without pain. No tenderness, weakness, swelling, increased warmth or erythema. Knees: ?Full range of motion. ?No tenderness, swelling, increased warmth or erythema.? Bilateral crepitations felt Ankles: Full range of motion. ?No tenderness to palpation. 3+ pitting edema up to the level of the tibial tuberosity bilaterally. Feet: ?Negative squeeze test. ?No tenderness to palpation or swelling of the MTPs. Tender points:?No tenderness to palpation of the bilateral trapezius, supraspinatus, greater trochanters, anterior costochondral junctions, bilateral gluteal areas, bilateral suboccipital muscle insertions SKIN Skin intact without rashes. Results Reviewed Results Reviewed: TimeLab lab reports reviewed. 10/28/2024 ESR 15 WBC 6.21 Hemoglobin 15.7 Platelets 169 Creatinine 0.90 AST/ALT C-reactive protein <3.0 Assessment & Plan Assessment & Plan (1) Rheumatoid arthritis: Comment: +++RF+++CCPDiagnosed 06/2020 erosive Prednisone and methotrexate started in 1999, ineffective Switched to infusions which are not specified, not effective Enbrel started 2001 until 2013 effective until it has lost its efficacy and patient developed a psoriasis like rash Orencia since July of 2018. DC 11/2022 Methotrexate added in 2019 Actemra 11/2022 effective Code(s): M06.9 - Rheumatoid arthritis, unspecified Category: Medical Qualifiers: Rheumatoid arthritis location: multiple sites Rheumatoid factor presence: unspecified presence Qualified Code(s): M06.9 - Rheumatoid arthritis, unspecified Plan: #Seropositive Erosive RA Patient is a 74-year-old female with seropositive erosive/deforming rheumatoid arthritis here today for follow up. Currently in remission with no further flares since the last visit. Plan - Actemra 162mg every 2 weeks - Methotrexate 17.5mg weekly - Lecovorin 10mg weekly - RTC 4 months - Labs before visit: CBC, CMP, ESR, CRP, lipids (2) Bilateral primary osteoarthritis of knee: Code(s): M17.0 - Bilateral primary osteoarthritis of knee Category: Medical Plan: #Bilateral Knee OA Patient with bilateral knee OA currently stable. (3) Osteoporosis: Comment: DEXA 2018 T-score-3.1 left hip Alendronate stopped due to GI upset DEXA 01/24 T-score -2.8 Code(s): M81.0 - Age-related osteoporosis without current pathological fracture Category: Medical Qualifiers: Osteoporosis type: age-related Presence of current pathological fracture: without current pathological fracture Qualified Code(s): M81.0 - Age- related osteoporosis without current pathological fracture Plan: #Severe osteoporosis at the left hip Patient with severe osteoporosis of the left hip. Patient has stopped alendronate due to GI upset. Refused Reclast infusions. Did not try the daily alendronate. Discussed Prolia and patient is agreeable We will start prior authorization. Patient will get Prolia at her next visit in 4 months if approved Plan - Check vit D at next blood draw - DEXA Scan at next visit - Prolia 60mg SC every 6 months (4) Encounter for monitoring tocilizumab therapy: Code(s): Z51.81 - Encounter for therapeutic drug level monitoring; Z79.620 - skilled nursing (current) use of immunosuppressive biologic Plan: #Long-term Use of Tocilizumab Discussed the risks and benefits of tocilizumab with the management of this patient's rheumatic condition. ? Benefits include decreased pain, improved mortality, improved quality of life Risks include LFT abnormalities, elevated triglycerides, GI perforations Contraindicated in a patient with history of diverticulitis Monitoring: ?CBC, CMP, triglycerides (5) Encounter for methotrexate monitoring: Code(s): Z51.81 - Encounter for therapeutic drug level monitoring; Z79.631 - skilled nursing (current) use of antimetabolite agent Plan: #Long-term Current Use of Methotrexate Discussed with patient the benefits and risks of methotrexate for managing their rheumatic condition Benefits include reduced pain, reduced mortality, maintenance of remission and reduction of flares Risks include oral ulcers, photosensitivity, hepatotoxicity, hematologic toxicity, pneumonitis, flu-like symptoms (especially day after administration), nodulosis, lymphomas ? Limit alcohol and avoid Bactrim ? Monitoring: ?CBC, BMP, LFTs every 3-4 months and hepatitis serologies as needed (6) Encounter for monitoring denosumab therapy: Code(s): Z51.81 - Encounter for therapeutic drug level monitoring; Z79.620 - termite treater helper (current) use of immunosuppressive biologic Plan: #Long-term use of Denosumab Discussed with patient the risks and benefits of denosumab (Prolia) for the management of their osteoporosis Benefits include improved bone density, decreased fracture risk Risks include rapid bone loss if denosumab stopped, osteonecrosis of the jaw especially in patients with poor oral hygiene/diabetes/use of glucocorticoids/age greater than 65 years, atypical femoral fractures, injection site reactions. Mild increased risk of infections due to RANKL on T helper cells, increased risk of hypocalcemia especially in CKD patients Keep vitamin-D at least 35 ng/mL Advised to delay non emergent dental procedures to toward the end of the 6 month cycle and if they plan to stop denosumab would need to continue antiresorptive to maintain the effects of denosumabe Plan I spent 32 minutes reviewing the record and labs, taking a history, examining the patient, discussing the treatment plan, ordering diagnostic work up and documenting in the medical record Orders: Orders Vitamin D 25-OH Total 4 Months E55.9 - Vitamin D deficiency, unspecified, M06.9 - Rheumatoid arthritis, unspecified C Reactive Protein 4 Months M06.9 - Rheumatoid arthritis, unspecified Complete Blood Count Auto Diff 4 Months M06.9 - Rheumatoid arthritis, unspecified Comprehensive Met. Panel 4 Months M06.9 - Rheumatoid arthritis, unspecified Lipid Panel 4 Months M06.9 - Rheumatoid arthritis, unspecified Erythrocyte Sedimentation Rate 4 Months M06.9 - Rheumatoid arthritis, unspecified Medications: Changed From methotrexate sodium 17.5 mg (7 x 2.5 mg) PO QWEEK 84 tabs 0RF M06.9 - Rheumatoid arthritis, unspecified To methotrexate sodium 17.5 mg (7 x 2.5 mg) PO QWEEK 90 days 91 tabs 1RF M06.9 - Rheumatoid arthritis, unspecified From leucovorin calcium 10 mg (2 x 5 mg) PO QWEEK 24 tabs 1RF M06.9 - Rheumatoid arthritis, unspecified To leucovorin calcium 10 mg (2 x 5 mg) PO QWEEK 90 days 26 tabs 1RF M06.9 - Rheumatoid arthritis, unspecified Refilled Actemra ACTPen (tocilizumab) 162 mg (0.9 mL) subcut Q2W 1.8 mL 5RF NS M06.9 - Rheumatoid arthritis, unspecified Coding Level of Care Code Est Pt Level 4 (41779) Complex EM visit Add On G2211 Diagnoses Rheumatoid arthritis involving multiple sites, unspecified whether rheumatoid factor present M06.9 Rheumatoid arthritis location: multiple sites Rheumatoid factor presence: unspecified presence Bilateral primary osteoarthritis of knee M17.0 Age-related osteoporosis without current pathological fracture M81.0 Osteoporosis type: age-related Presence of current pathological fracture: without current pathological fracture Encounter for monitoring tocilizumab therapy Z51.81; Z79.620 Encounter for methotrexate monitoring Z51.81; Z79.631 Encounter for monitoring denosumab therapy Z51.81; Z79.620
== END 2024-11-16 14:51 | disposition home or self-care (01) ==
LOC: HO.RHE 13:58
PROVIDERS: PCP Physician Assistant; Visit Provider Student in an Organized Health Care Education/Training Program
DX: M06.9 Rheumatoid arthritis, unspecified (principal); M17.0 Bilateral primary osteoarthritis of knee; M81.0 Age-related osteoporosis without current pathological fracture; Z51.81 Encounter for therapeutic drug level monitoring; Z79.620 Long term (current) use of immunosuppressive biologic; Z79.631 Long term (current) use of antimetabolite agent
CPT/HCPCS: 99214; G2211

== ENCOUNTER → 2024-11-16 13:58 | Outpatient (BNVA) | payer MEDICARE, OTHER, SELFPAY | PROVIDERS: PCP Physician Assistant; Visit Provider Student in an Organized Health Care Education/Training Program | DX: M06.9 Rheumatoid arthritis, unspecified (principal); M17.0 Bilateral primary osteoarthritis of knee; M81.0 Age-related osteoporosis without current pathological fracture; Z51.81 Encounter for therapeutic drug level monitoring; Z79.620 Long term (current) use of immunosuppressive biologic; Z79.631 Long term (current) use of antimetabolite agent | CPT/HCPCS: 99212 ==

== ENCOUNTER 2025-04-12 09:44 | Outpatient (AMB) | payer MEDICARE, OTHER, SELFPAY ==
--- OUTSIDE RECORDS SUMMARY | 2003-12-26 | XMS_ITS | Encounter Summary ---
Author Organization [facility] Address [address] [place] [address] Phone Care Team Providers Care Termite Control Servicer Name Role Phone Unavailable Primary Care Provider Unavailabl e Encounter Details Date Type Department Care Team (Late st Contact Info) Description 12/26/2003 Hospital Encounter [facility],Outside Imaging [address] [place] [address] System, Provider Not In, [place] [address] Social History Tobacco Use Types Packs/Day Years Used Date Smoking Tobacco: Former Cigarettes 1 40 0 08/04/1970 - 08/04/2010 Smokeless Tobacco: Never Alcohol Use Standard Drinks/Week Comments Yes 0 (1 standard drink = 0.6 oz pur e alcohol) socially Education Answer Date Recorded Are you interested in more education? Not on mariya e 11/30/2022 Are you concerned about learning? Not on file 11/30/2022 No 11/30/2022 No 11/30/2022 Digital Access Answer Date Recorded No 12/29/2022 No 12/29/2022 No 12/29/2022 Reliable internet access at home? Not on file 12/29/2022 Device with a working camera? Not on file Comments No Sex and Gender Information Value Date Recorded Sex Assigned at Female 12/13/2021 7:05 PM EDT Legal Sex Female 6:31 PM EST Gender Identity Female 12/13/2021 7:05 PM EDT Sexual Orientation Straight 12/13/2021 7: 05 PM EDT documented as of this encounter Plan of Treatment Not on file documented as of this encounter Procedures Procedure Name Priority Date/Time Associated Diagnosis Comments BI MAMMOGRAM OUTSIDE (NO INTERPRETATION) Routine 12/26/2003 12:00 AM EDT documented in this encounter Results * Mammogram Outside (No Interpretation) (12/26/2003 12:00 AM EDT) Narrative SYSTEMGENERATED, DOCUMENTATION - 03/17/2019 9:12 AM EDT This study is for PACS storage only and not for interpretation. us Provider Not In System PhD IMG OUTSIDE IMAGING W /OUT INTERPRETATION Final Result documented in this encounter Visit Diagnoses Not on filedocumented in this encounter Additional Source Comments The information contained in this document represents components of the legal health record. It is not the complete legal health record.[facility]
--- OUTSIDE RECORDS SUMMARY | 2006-04-21 | XMS_ITS | Encounter Summary ---
Author Organization [facility] Address [address] [place] [phone] Phone Care Team Providers Care Excelsior Machine Feeder Name Role Phone Unavailable Primary Care Provider Unavailabl e Encounter Details Date Type Department Care Team (Late st Contact Info) Description 04/21/2006 Hospital Encounter [facility],Outside Imaging [address] [place] [address] System, Provider [place] In, [place] [address] Social History Tobacco Use Types Packs/Day Years [...] Comments BI MAMMOGRAM OUTSIDE (NO INTERPRETATION) Routine 04/21/2006 12:00 AM EDT documented in this encounter Results * Mammogram Outside (No Interpretation) (04/21/2006 12:00 AM EDT) Narrative SYSTEMGENERATED, DOCUMENTATION - 03/17/2019 9:11 AM EDT This study is for PACS storage only and not for interpretation. us Provider Not In System PhD IMG OUTSIDE IMAGING W /OUT INTERPRETATION Final Result documented in this encounter Visit Diagnoses Not on filedocumented in this encounter Additional Source Comments The information contained in this document represents components of the legal health record. It is not the complete legal health record.[facility]
--- OUTSIDE RECORDS SUMMARY | 2011-05-15 | XMS_ITS | Encounter Summary ---
Author Organization [facility] Address [address] [place] [phone] Phone Care Team Providers Care Technical Instructor Name Role Phone Unavailable Primary Care Provider Unavailabl e Encounter Details Date Type Department Care Team (Late st Contact Info) Description 05/15/2011 Hospital Encounter [facility],Outside Imaging [address] [place] [address] System, Provider [place] In, [place] [address] Social History Tobacco Use Types Packs/Day Years [...] Comments BI MAMMOGRAM OUTSIDE (NO INTERPRETATION) Routine 05/15/2011 12:00 AM EDT documented in this encounter Results * Mammogram Outside (No Interpretation) (05/15/2011 12:00 AM EDT) Narrative SYSTEMGENERATED, DOCUMENTATION - [...] It is not the complete legal health record.[facility]
--- NOTE | 2025-04-12 10:02 | MHC.OFFVIS ---
Vital Signs 04/12/25 10:08 Height 5 ft 7 in Weight 255 lb 11.779 oz BMI 40.0 BP 152/100 H Blood Pressure Location Rt brachial Position Sitting Pulse 63 Pulse Source Pulse Oximeter Pulse Oximetry (%) 97 Oxygen Delivery Method Room Air Intake Visit Reasons: RA Intake Note: Patient presents for RA follow up. Allergies epinephrine Allergy (Intermediate, Verified 04/12/25 10:07) shaky, palpitations,ineffective HPI Comments Details: Patient is a 74-year-old female with bilateral knee osteoarthritis, osteoporosis and seropositive deforming rheumatoid arthritis here today for follow up Interval History: Patient last seen 11/16/24 with me - On Methotrexate 17.5mg weekly PO, Actemra 162mg SC every 2 weeks, Leucovorin 10mg once a week and alendronate 10mg daily - Doing well with her RA. No further flares since the last visit. - Has AM stiffness that lasts all day but no swelling - Knee OA: doing well, no complaints - Osteroporosis: No falls since last visit. Did not start the alendronate due to concerns of GERD and dental procedures - No changes made to medications - Discussed starting Prolia Today - On Methotrexate 17.5mg weekly PO, Actemra 162mg SC every 2 weeks, Leucovorin 10mg once a week - Doing well. No flares - No recent falls or fractures Rheumatologic History: +++RF+++CCPDiagnosed 06/2020 erosive Prednisone and methotrexate started in 1999, ineffective Switched to infusions which are not specified, not effective Enbrel started 2001 until 2013 effective until it has lost its efficacy and patient developed a psoriasis like rash Orencia since July of 2018. DC 11/2022 Methotrexate added in 2019 Actemra 11/2022 effective Initial history: This is a 72-year-old female with erosive deforming RA who presents as a new patient. 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 Patient used to see Dr. March for many years followed by Dr. Damon more recently. She was diagnosed with RA in June of 2000. She was initially started on methotrexate and prednisone. They were ineffective she was then switched to infusions at patient could not specify. She was doing very well on Enbrel from 2001 until 2013. There was a lapse in medical follow-up. From [id number]. In 2018 she was started on Orencia and methotrexate was added in 2019. Patient states that her RA is doing well overall. She states she no longer has those severe flares. She has not had a major flare in many years. Her main complaint is her bilateral feet pain. This started 4-5 years ago. She has bilateral foot deformities. She also has calluses at the bottom of her feet. She was evaluated by Podiatry and she gets these calluses shaved off every once in a while and she wears shoes with arch support. Current Rheumatology Medication(s): Methotrexate 70 more 5 mg every week Leucovorin 10 mg every week Actemra 162 mg SC every other week [facility] Medical History (Updated 05/19/24 @ 11:04 by Mima Domingo MD) Bilateral knee swelling Psychophysiologic disorder Premature menopause Rheumatoid arthritis Open-angle glaucoma Ocular hypertension Tobacco abuse Anxiety Major depression Surgical History History of cataract surgery Family History Mother Diabetes Father Lung cancer Bone cancer Osteoporosis Sister Ovarian cancer Social History Household Members: Other Household Members Other:: alone Housing: Apartment Patient Tobacco Use Status: Former Tobacco user Years Smoked: 44 years Current occupational status: retired Review of Systems Const Details: Review of Systems Constitutional: Denies fever, chills, weight loss ENT: Denies vision changes, eye pain or eye redness, dental caries, dry mouth GI: Denies nausea, vomiting, diarrhea, abdominal pain, change in BM Pulm: Denies SOB, JIMENEZ, hemoptysis, wheezing Cards: Denies chest pain, palpitations Skin: Denies Raynaud's, rash, nail changes, photosensitivity, TOOL GRINDER: Denies headaches, weakness, paresthesias, recurrent falls MSK: as per HPI All other systems reviewed and are unremarkable except noted above Physical Exam Exam Exam: Vital signs reviewed Physical Examination CONSTITUITIONAL Patient alert and cooperative. Well appearing and in no apparent painful distress MSK Hands Right Hand: Ulnar deviation and prominent synovial hypertrophy to the 2nd - 4th MCPs. No TTP or swelling. No TTP or swelling of the PIPs. Herbedens nodes noted Left Hand: Ulnar deviation and prominent synovial hypertrophy to the 2nd - 4th MCPs. No TTP or swelling. No TTP or swelling of the PIPs. Herbedens nodes noted Wrists Right Wrist: No swelling or TTP Left Wrist: No swelling or TTP Elbows Right Elbow: Full ROM. No swelling or TTP. No TTP of the medial epicondyle. No TTP of the lateral epicondyle Left Elbow: Full ROM. No swelling or TTP. No TTP of the medial epicondyle. No TTP of the lateral epicondyle Shoulders Right shoulder: Full ROM. No swelling noted. No TTP of the AC joint. No TTP of the subacromial bursa. No TTP of the posterior shoulder Left shoulder: Full ROM. No swelling noted. No TTP of the AC joint. No TTP of the subacromial bursa. No TTP of the posterior shoulder Knees Right knee: Full ROM. No swelling noted. No TTP of the knee joint line. No TTP of pes anserine bursa Left knee: Full ROM. No swelling noted. No TTP of the knee joint line. No TTP of pes anserine bursa. Crepitations felt bilaterally Ankles Right ankle: Pitting edema up to the TT. Good ankle dorsiflexion and plantar flexion. No TTP of the ankle joint Left ankle: Pitting edema up to the TT. Good ankle dorsiflexion and plantar flexion. No TTP of the ankle joint Feet Right foot: Negative squeeze test. Left foot: Negative squeeze test Toes deformities noted bilaterally Tender points? No tenderness to palpation of the bilateral trapezius, supraspinatus, anterior costochondral junctions, bilateral suboccipital muscle insertions SKIN No rashes Vital Signs: Last Vital Signs Pulse 63 04/12/25 10:08 BP 152/100 H 04/12/25 10:08 Pulse Ox 97 04/12/25 10:08 Oxygen Delivery Method Room Air 04/12/25 10:08 BMI result Body Mass Index 40.0 Results Reviewed Results Reviewed: 03/15/25 [place] WBC 4.95 Hb 15.7 Plt 151 BUN 18 Cr 0.9 eGFR 67 AST 22 ALT 18 ESR 13 CRP <3 Vit D 33 TGs 123 LDL 129 Chol 215 Assessment & Plan Assessment & Plan (1) Rheumatoid arthritis: Comment: +++RF+++CCPDiagnosed 06/2020 erosive Prednisone and methotrexate started in 1999, ineffective Switched to infusions which are not specified, not effective Enbrel started 2001 until 2013 effective until it has lost its efficacy and patient developed a psoriasis like rash Orencia since July of 2018. DC 11/2022 Methotrexate added in 2019 Actemra 11/2022 effective Code(s): M06.9 - Rheumatoid arthritis, unspecified Category: Medical Qualifiers: Rheumatoid arthritis location: multiple sites Rheumatoid factor presence: unspecified presence Qualified Code(s): M06.9 - Rheumatoid arthritis, unspecified Plan: #Seropositive Erosive RA Patient is a 74-year-old female with seropositive erosive/deforming rheumatoid arthritis here today for follow up. Currently in remission with no further flares since the last visit. Plan - Actemra 162mg every 2 weeks - Methotrexate 17.5mg weekly - Lecovorin 10mg weekly - RTC 6 months - Labs before visit: CBC, CMP, ESR, CRP, lipids (2) Bilateral primary osteoarthritis of knee: Code(s): M17.0 - Bilateral primary osteoarthritis of knee Category: Medical Plan: #Bilateral Knee OA Patient with bilateral knee OA currently stable. (3) Osteoporosis: Comment: DEXA 2018 T-score-3.1 left hip Alendronate stopped due to GI upset DEXA 01/24 T-score -2.8 Code(s): M81.0 - Age-related osteoporosis without current pathological fracture Category: Medical Qualifiers: Osteoporosis type: age-related Presence of current pathological fracture: without current pathological fracture Qualified Code(s): M81.0 - Age-related osteoporosis without current pathological fracture Plan: #Severe osteoporosis at the left hip Patient with severe osteoporosis of the left hip. Patient has stopped alendronate due to GI upset. Refused Reclast infusions. Discussed Prolia and patient is agreeable We will start prior authorization. 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 ? Benefits include decreased pain, improved mortality, improved quality of life Risks include LFT abnormalities, elevated triglycerides, GI perforations Contraindicated in a patient with history of diverticulitis Monitoring: ?CBC, CMP, triglycerides (5) Encounter for methotrexate monitoring: Code(s): Z51.81 - Encounter for therapeutic drug level monitoring; Z79.631 - assisted (current) use of antimetabolite agent Plan: #Long-term Current Use of Methotrexate Discussed with patient the benefits and risks of methotrexate for managing their rheumatic condition Benefits include reduced pain, reduced mortality, maintenance of remission and reduction of flares Risks include oral ulcers, photosensitivity, hepatotoxicity, hematologic toxicity, pneumonitis, flu-like symptoms (especially day after administration), nodulosis, lymphomas ? Limit alcohol and avoid Bactrim ? 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 Mild increased risk of infections due to RANKL on T helper cells, increased risk of hypocalcemia especially in CKD patients Keep vitamin-D at least 35 ng/mL Advised to delay non emergent dental procedures to toward the end of the 6 month cycle and if they plan to stop denosumab would need to continue antiresorptive to maintain the effects of denosumabe Plan I spent 32 minutes reviewing the record and labs, taking a history, examining the patient, discussing the treatment plan, ordering diagnostic work up and documenting in the medical record Orders: Orders Hepatitis B,C Profile 6 Months Z79.899 - Other halfway (current) drug therapy Lipid Panel 6 Months Z79.899 - Other intermodal truck driver (current) drug therapy Vitamin D 25-OH Total 6 Months Z79.899 - Other intermodal truck driver (current) drug therapy Complete Blood Count Auto Diff 6 Months Z79.899 - Other halfway (current) drug therapy Comprehensive Met. Panel 6 Months Z79.899 - Other intermodal truck driver (current) drug therapy C Reactive Protein 6 Months Z79.899 - Other halfway (current) drug therapy Erythrocyte Sedimentation Rate 6 Months Z79.899 - Other intermodal truck driver (current) drug therapy T Spot TB 6 Months Z79.899 - Other halfway (current) drug therapy XR DEXA axial skeleton Today M81.0 - Age-related osteoporosis without current pathological fracture Medications: Refilled Actemra ACTPen (tocilizumab) 162 mg (0.9 mL) subcut Q2W 1.8 mL 5RF NS M06.9 - Rheumatoid arthritis, unspecified leucovorin calcium 10 mg (2 x 5 mg) PO QWEEK 26 tabs 1RF 90 days M06.9 - Rheumatoid arthritis, unspecified methotrexate sodium 17.5 mg (7 x 2.5 mg) PO QWEEK 91 tabs 1RF 90 days M06.9 - Rheumatoid arthritis, unspecified Coding Level of Care Code Est Pt Level 4 (18063) Complex EM visit Add On G2211 Diagnoses Rheumatoid arthritis involving multiple sites, unspecified whether rheumatoid factor present M06.9 Rheumatoid arthritis location: multiple sites Rheumatoid factor presence: unspecified presence Bilateral primary osteoarthritis of knee M17.0 Age-related osteoporosis without current pathological fracture M81.0 Osteoporosis type: age-related Presence of current pathological fracture: without current pathological fracture Encounter for monitoring tocilizumab therapy Z51.81; Z79.620 Encounter for methotrexate monitoring Z51.81; Z79.631 Encounter for monitoring denosumab therapy Z51.81; Z79.620
[2025-04-12 10:08] VITALS: BP 152/100; PULSE 63; O2SAT 97; BMI 40.0
--- OUTSIDE RECORDS SUMMARY | 2025-04-12 11:24 | XMS_ITS | Encounter Summary ---
Author Organization [facility] Address [address] [place] [phone] Phone Care Team Providers Care Bench Worker Helper Name Role Phone Ronel Cantu Primary Care Provider Donato Cha Primary Care Provider + Encounter Details Date Type Department Care Team (Late st Contact Info) Description 04/13/2024 Transcribe Orders Virtual Department [address] [place] [address] Mima Domingo MD [address] [facility] Internal [place] [address] Rheumatoid arthritis, involving unspecified site, unspecified whether rheumatoid factor present (Primary Dx) Social History Tobacco Use Types Packs/Day Years [...] on file documented as of this encounter Results * XR KNEE 4 OR MORE VIEWS (BILATERAL) (04/14/2024 9:30 AM EDT) Anatomical Region Laterality Modality Knee Bilateral, Knee Right, Knee Left Computed Radiography 04/14/2024 1:07 PM EDT Impressions 04/14/2024 1:18 PM EDT 1. No evidence of acute fracture or malalignment. 2. Bilateral tricompartmental degenerative change, most marked laterally. 3. Mixed density lesion within the right medial femoral condyle, most likely representing a bone infarct, less likely chondroid matrix lesion. Complete characterization with MRI may be considered if clinically indicated. A clinically significant result was initiated on 04/14/2024 1:17 PM, Message ID [id number]. Narrative 04/14/2024 1:18 PM EDT XR KNEE 4 OR MORE VIEWS (BILATERAL) 04/14/2024 9:13 AM Referring clinician's provided indication for this examination in Epic: Outside Radiology Order; rheumatoid arthritis COMPARISON: None FINDINGS: There is no evidence of acute fracture, subluxation, or dislocation. There is bilateral tricompartmental degenerative change, most marked laterally. There is a mixed density lesion within the right medial femoral condyle, may represent a bone infarct. There are trace bilateral joint effusions. There are no acute soft tissue abnormalities. Procedure Note Karlie Alonzo MD - 04/14/2024 XR KNEE 4 OR MORE VIEWS (BILATERAL) 04/14/2024 9:13 AM Referring clinician's provided indication for this examination in Epic:Outside Radiology Order; rheumatoid arthritis COMPARISON: None FINDINGS: There is no evidence of acute fracture, subluxation, or dislocation. Thereis bilateral tricompartmental degenerative change, most marked laterally.There is a mixed density lesion within the right medial femoral condyle,may represent a bone infarct. There are trace bilateral joint effusions.There are no acute soft tissue abnormalities. IMPRESSION: 1. No evidence of acute fracture or malalignment. 2. Bilateral tricompartmental degenerative change, most markedlaterally. 3. Mixed density lesion within the right medial femoral condyle, mostlikely representing a bone infarct, less likely chondroid matrix lesion.Complete characterization with MRI may be considered if clinicallyindicated. A clinically significant result was initiated on 04/14/2024 1:17 PM,Message ID [id number]. Mima Domingo MD IMG XR LOWER EX TREMITY Final Result documented in this encounter Visit Diagnoses Diagnosis Rheumatoid arthritis, involving unspecified site, unspecified whether rheumatoid factor present- Primary Rheumatoid arthritis, involving unspecified site, unspecified whether rheumatoid factor present documented in this encounter Additional Health Concerns Assessment Noted Time A Body Mass Index follow-up plan has been documented for the patient 12/08/2018 12:13 PM EDT PHQ-2 Depression Total Score: 0 12/09/19 19 11:50 AM EDT documented as of this encounter Care Teams Bench Worker Helper Relationship Specialty Start Date End Date Ronel Cantu PA [address] [place] [phone] [email or web address] PCP - General Physician Cartridge Gauger 08/30/22 10/27/24 Donato Cha PA [address] [place] [id number] PCP - General Physician Cartridge Gauger 10/28/24 documented as of this encounter Additional Source Comments The information contained in this document represents components of the legal health record. It is not the complete legal health record.[facility]
--- OUTSIDE RECORDS SUMMARY | 2025-04-12 11:24 | XMS_ITS | Clinical Summary ---
Author Organization [facility] Address [address] [place] [address] Phone Care Team Providers Care Marine Farmer Name Role Phone Donato Cha Primary Care Provider + Allergies Active Allergy Reactions Criticality Noted Date Comments Epinephrine 12/08/2018 Medications folic acid (FOLVITE) 1 MG tablet Take 1 mg by mouth daily. Active latanoprost (XALATAN) 0.005 % ophthalmic solution Place 1 drop into each eye nightly at bedtime. Active leucovorin (WELLCOVORIN) 5 mg tablet Take 5 mg by mouth 2 (two) times a day. Active methotrexate 2.5 MG Oral tabletIndications :takes 5 tablets at once every 7 days Take 2.5 mg by mouth every 7 days. Indications: takes 5 tablets at once every 7 days Active abatacept (ORENCIA) 125 mg/mL Syrg subcutaneous injection syringeIndication s:inject (1) ml every week Inject 125 mg under the skin once. Indications: inject (1) ml every week Active ibuprofen (ADVIL,MOTRIN) 200 MG tablet Take 200 mg by mouth every 6 (six) hours as needed for pain (specific location in comments). Active Active Problems Problem Noted Date Diagnosed Date Glaucoma 12/08/2018 Rheumatoid arthritis 12/08/2018 Localized swelling of both lower legs 12/08/2018 Encounters Date Type Department Care Team Description 03/15/2025 8:03 AM EDT - 03/15/2025 11:59 PM EDT Hospital Encounter [facility] [place] [address] Jocelyne Thomas MD Discharge Disposition: Home or Self Care 03/15/2025 Transcribe Orders [facility] [address] [place] [address] [place] [address] Jocelyne Thomas MD Pure hypercholesterolemia (Primary Dx); Avitaminosis D; Rheumatoid arthritis, involving unspecified site, unspecified whether rheumatoid factor present from Last 3 Months Immunizations Immunization Administration Dates Next Due Influenza High-Dose Quadriva lent Preservative Free IM 05/24/2020 Influenza High-Dose Trivalen t Preservative Free IM 06/17/2019 Influenza, Unspecified Formulation 06/05/2005,,05/25/2002 Pneumococcal polysaccharide PPSV23 06/05/2005 Tdap 04/23/2011 Family History Medical History Relation Comments Coronary artery disease Brother cardiac stent Diabetes Brother No Known Problems Daughter Arthritis Father Cancer Father Lung cancer Father heavy smoker Alcohol abuse Maternal Grandfather Arthritis Mother Diabetes Mother Hypertension Mother Stroke Mother Colon cancer Sister diagnosed in her 70s Ovarian cancer Sister Relation Status Comments Brother Alive Daughter Alive Father Maternal Grandfather Mother Sister Social History Tobacco Use Types Packs/Day Years Used Date Smoking Tobacco: Former Cigarettes 1 40 0 08/04/1970 - 08/04/2010 Smokeless Tobacco: Never Tobacco Cessation:Counseling Given: Not Answered Alcohol Use Standard Drinks/Week Comments Yes 0 [...] Orientation Straight 12/13/2021 7: 05 PM EDT Last Filed Vital Signs Vital Sign Reading Time Taken Comments Blood Pressure 128/80 12/08/2018 11:38 AM EDT Pulse 86 12/08/2018 10:37 AM EDT Temperature - - Respiratory Rate - - Oxygen Saturation 97% 12/08/2018 10:37 AM EDT Inhaled Oxygen Concentration - - Weight 77.1 kg (170 lb) 12/08/2018 10:37 AM EDT Height 168.9 cm (5' 6.5 ) 12/08/2018 10:37 AM ED T Body Mass Index 27.03 12/08/2018 10:37 AM EDT Plan of Treatment Health Maintenance Due Date Last Done Comments SMOKING Hx and SMOKELESS TOBACCO SCREENING 1962 ZOSTER VACCINES (1 of 2) 1968 COLOGUARD 1994 COLONOSCOPY 1994 COLORECTAL CANCER SCREENING 1994 FIT TEST 1994 FOBT 1994 SIGMOIDOSCOPY 1994 VIRTUAL COLONOSCOPY 1994 PNEUMOCOCCAL VACCINES (50+ years) (2 of 2 - PCV) 06/05/2006 06/05/2005 OSTEOPOROSIS SCREENING INITIAL (ONE-TIME) 2014 DEPRESSION SCREENING 12/09/2019 12/08/2018 COVID-19 VACCINE (3 - Moderna risk series) 11/24/2020 10/27/2020, 09/29/2020 Adult Td,Tdap Booster 04/23/2021 04/23/2011 RSV VACCINE (1 - 1-dose 75+ series) 2024 INFLUENZA VACCINE (#1) 2025 0, 06/17/2019, 06/05/2005, Additional history exists LIPID PANEL 03/15/2030 03/15/2025, 12/08/2018 HEPATITIS C SCREENING Completed 08/30/2022 HEPATITIS A VACCINES Aged Out No long er eligible based on patient's age to complete this topic HIB VACCINES Aged Out No longer eligi ble based on patient's age to complete this topic MENINGOCOCCAL VACCINES (ACWY) Aged Out No longer eligible based on patient's age to complete this topic MENINGOCOCCAL VACCINES (B) Aged Out N o longer eligible based on patient's age to complete this topic Medical Devices Not on file Procedures Procedure Name Priority Date/Time Associated Diagnosis Comments 25-OH VITAMIN D Routine 03/15/2025 8:08 AM EDT Pure hypercholesterolemia Avitaminosis D Rheumatoid arthritis, involving unspecified site, unspecified whether rheumatoid factor present C-REACTIVE PROTEIN Routine 03/15/2025 8: 08 AM EDT Pure hypercholesterolemia Avitaminosis D Rheumatoid arthritis, involving unspecified site, unspecified whether rheumatoid factor present COMPREHENSIVE METABOLIC PANEL Routine 03/15/2025 8:08 AM EDT Pure hypercholesterolemia Avitaminosis D Rheumatoid arthritis, involving unspecified site, unspecified whether rheumatoid factor present CBC AND DIFFERENTIAL Routine 03/15/2025 8:08 AM EDT Pure hypercholesterolemia Avitaminosis D Rheumatoid arthritis, involving unspecified site, unspecified whether rheumatoid factor present LIPID PANEL Routine 03/15/2025 8:08 AM EDT Pure hypercholesterolemia SEDIMENTATION RATE (ESR) Routine 03/15/2025 8:08 AM EDT Pure hypercholesterolemia Avitaminosis D Rheumatoid arthritis, involving unspecified site, unspecified whether rheumatoid factor present HEPATITIS C ANTIBODY, QUALITATIVE Routine 08/30/2022 11:16 AM EST Need for hepatitis C screening test from Last 3 Months or Most Recently Relevant to Health Maintenance Results * (ABNORMAL) Comprehensive metabolic panel (03/15/2025 8:08 AM EDT) SODIUM 141 133 - 146 mmol/L [facility] POTASSIUM 4.8 3.3 - 5.1 mmol/L [facility] CHLORIDE 104 96 - 108 mmol/L [facility] CO2 26 21 - 35 mmol/L [facility] BUN 18 6 - 19 mg/dL [facility] CREATININE 0.90 0.5 - 1.5 mg/dL [facility] GLUCOSE 104(H) 70 - 99 mg/dL [facility] ALBUMIN 3.9 3.9 - 4.8 g/dL [facility] TOTAL PROTEIN 6.5 6.5 - 8.0 g/dL [facility] CALCIUM 9.4 8.4 - 10.3 mg/dL [facility] ALKALINE PHOSPHATASE 71 39 - 117 U/L [facility] TOTAL BILIRUBIN 0.5 0.0 - 1.2 mg/dL [facility] AST 22 0 - 37 U/L [facility] ALT 18 0 - 40 U/L [facility] GLOBULIN 2.6 1 - 4.8 g/dL [facility] EGFR 67 >59 mL/min/1.7 3m2 [facility] Comment:Estimated glomerular filtration rate calculated using the CKD-EPI refit equation. ANION GAP 16 10 - 20 mmol/L [facility] Blood 03/15/2025 8:08 AM EDT 03/15/2025 8:12 AM EDT Jocelyne Thomas MD LAB BLOOD ORDER IRAIS Final Result Performing Organization Address City/[facility]/ZIP Co de Phone Number [address] [address] * 25-OH vitamin D (03/15/2025 8:08 AM EDT) 25 OH VIT D (TOTAL) 33 30 - 60 ng/mL [facility] Blood 03/15/2025 8:08 AM EDT 03/15/2025 8:12 AM EDT Jocelyne Thomas MD LAB BLOOD ORDER IRAIS Final Result Performing Organization Address [facility]/ZIP Co de Phone Number [address] [address] * Sedimentation rate (ESR) (03/15/2025 8:08 AM EDT) ESR 13 0 - 30 mm/h [facility] Blood 03/15/2025 8:08 AM EDT 03/15/2025 8:12 AM EDT Jocelyne Thomas MD LAB BLOOD ORDER IRAIS Final Result Performing Organization Address City/[facility]/ZIP Co de Phone Number [address] [address] * (ABNORMAL) CBC and differential (03/15/2025 8:08 AM EDT) WBC 4.95 4.00 - 11.00 K/uL [facility] RBC 4.71 4.00 - 5.20 M/uL [facility] HGB 15.7 12.0 - 16.0 g/dL [facility] HCT 48.1(H) 36.0 - 46.0 % [facility] PLT 151 150 - 450 K/uL [facility] MCV 102.1(H) 80.0 - 100.0 fL [facility] MCH 33.3(H) 27.0 - 31.0 pg [facility] MCHC 32.6 32.0 - 36.0 g/dL [facility] RDW 13.5 11.5 - 14.5 % [facility] MPV 11.7 8.4 - 12.0 fL [facility] NRBC 0.00 0.00 /100 WBCs [facility] ABSOLUTE NRBC 0.00 0.00 K/uL [facility] DIFF METHOD Auto [facility] NEUTS 54.7 48.0 - 76.0 % [facility] LYMPHS 21.6 18.0 - 41.0 % [facility] MONOS 16.4(H) 4.0 - 11.0 % [facility] EOS 6.5(H) 0.0 - 5.0 % [facility] BASOS 0.6 0.0 - 1.5 % [facility] Granulocytes, immature (%) 0.2 0.0 - 0.9 % [facility] ABSOLUTE NEUTS 2.71 1.92 - 7.60 K/uL [facility] ABSOLUTE LYMPHS 1.07 0.72 - 4.10 K/uL [facility] ABSOLUTE MONOS 0.81 0.16 - 1.10 K/uL [facility] ABSOLUTE EOS 0.32 0.00 - 0.50 K/uL [facility] ABSOLUTE BASOS 0.03 0.00 - 0.15 K/uL [facility] Granulocytes, immature 0.01 0.00 - 0.09 K/uL [facility] Blood 03/15/2025 8:08 AM EDT 03/15/2025 8:12 AM EDT Jocelyne Thomas MD LAB BLOOD ORDER IRAIS Final Result [address] [address] * C-Reactive Protein (03/15/2025 8:08 AM EDT) C REACTIVE PROTEIN <3.0 0.0 - 4.0 mg/L [facility] Blood 03/15/2025 8:08 AM EDT 03/15/2025 8:12 AM EDT Jocelyne Thomas MD LAB BLOOD ORDER IRAIS Final Result Performing Organization Address [facility] Co de Phone Number [address] [address] * Lipid panel (03/15/2025 8:08 AM EDT) HDL 66 mg/dL [facility] Comment: Interpretation <40 mg/dL: Low HDL cholesterol (major risk factor for CHD) Greater than or equal to 60 mg/dL: High HDL cholesterol ( negative risk factor for CHD) HDL - cholesterol is affected by a number of factors, e.g. smoking, excerise, hormones, sex and age. CHOLESTEROL 215 0 - 240 mg/dL [facility] TRIGLYCERIDES 129 30 - 160 mg/dL [facility] LDL 123 50 - 129 mg/dL [facility] Comment: LDL levels in terms of risk for coronary heart disease: <100 mg/dL: Optimal 100-129 mg/dL: Near or above optimal 130-159 mg/dL: Borderline high 160-189 mg/dL: High >190 mg/dL: Very High CARDIAC RISK RATIO 3.3 3.3 - 4.4 C [facility] Blood 03/15/2025 8:08 AM EDT 03/15/2025 8:12 AM EDT Jocelyne Thomas MD LAB BLOOD ORDER IRAIS Final Result [address] [address] * Hepatitis C antibody, qualitative (08/30/2022 11:16 AM EST) HCV NON-REACTIV E NON-REACTI VE [facility] Blood 08/30/2022 11:1 6 AM EST 08/30/2022 11:20 AM EST us Mima Domingo MD LAB BLOOD ORDER IRAIS Final Result Performing Organization Address City/[facility] Co de Phone Number [address] [address] from Last 3 Months or Most Recently Relevant to Health Maintenance Insurance MEDICARE PART A & B [facility] MEDICARE SUPPLEMENT MEDICARE PART A & B MEDICARE SUPPLEMENT MEDICARE PART A & B Member Subscriber Plan / Payer ( fective 2018-Present) Name:Cesia Tovarbeth Sotero Member ID:[id number] Relation to Subscriber:Self Name:Cesia Tovarbecody Bey Subscriber ID:[id number] Payer ID:[id number] Group ID:Not on file Type:Medicare Address: [employer] [address] MEDICARE SUPPLEMENT MEDICARE PART A & B MEDICARE SUPPLEMENT MEDICARE PART A & B MEDICARE SUPPLEMENT MEDICARE PART A & B MEDICARE SUPPLEMENT MEDICARE PART A & B [facility] [place] MEDICARE SUPPLEMENT MEDICARE PART A & B [facility] MEDICARE SUPPLEMENT MEDICARE PART A & B [facility] MEDICARE SUPPLEMENT Care Teams Marine Farmer Relationship Specialty Start Date End Date Donato Cha PA [address] [place] [address] PCP - General Physician Automotive Parts Salesperson 10/28/24 Additional Source Comments The information contained in this document represents components of the legal health record. It is not the complete legal health record.[facility]
--- OUTSIDE RECORDS SUMMARY | 2025-04-12 11:24 | XMS_ITS | Encounter Summary ---
Author Organization [facility] Address [address] [place] [address] Phone Care Team Providers Care Technical Inspector Name Role Phone Mare Montano RNhot wound spring production supervisor Provider [phone] Mulu Batista MD Primary Care Provider [email or web address] Ronel Cantu Primary Care Provider [phone] Donato Cha Primary Care Provider + Encounter Details Date Type Department Care Team (Late st Contact Info) Description 03/17/2019 Ancillary Orders [facility],Outside Imaging [address] [place] [address] System, Provider Not In, PhD [address] [address] Social History Tobacco Use Types Packs/Day Years Used Date Smoking Tobacco: Former Cigarettes 1 40 1 971 - 2010 Smokeless Tobacco: Never Alcohol Use Standard Drinks/Week Comments Yes 0 (1 standard drink = 0.6 oz pur e alcohol) socially Comments Unknown Sex and Gender Information Value Date Recorded Sex Assigned at Female 12/13/2021 7:05 PM EDT Legal Sex Female 6:31 PM EST Gender Identity Female 12/13/2021 7:05 PM EDT Sexual Orientation Straight 12/13/2021 7: 05 PM EDT documented as of this encounter Plan of Treatment Not on file documented as of this encounter Results * Mammogram Outside (No Interpretation) (05/15/2011 12:00 AM EDT) Narrative SYSTEMGENERATED, DOCUMENTATION - 03/17/2019 9:11 AM EDT This study is for PACS storage only and not for interpretation. us Provider Not In System PhD IMG OUTSIDE IMAGING W /OUT INTERPRETATION Final Result * Mammogram Outside (No Interpretation) (04/21/2006 12:00 AM EDT) Narrative SYSTEMGENERATED, DOCUMENTATION - 03/17/2019 9:11 AM EDT This study is for PACS storage only and not for interpretation. us Provider Not In System PhD IMG OUTSIDE IMAGING W /OUT INTERPRETATION Final Result * Mammogram Outside (No Interpretation) (12/26/2003 12:00 AM EDT) Narrative SYSTEMGENERATED, DOCUMENTATION - 03/17/2019 9:12 AM EDT This study is for PACS storage only and not for interpretation. us Provider Not In System PhD IMG OUTSIDE IMAGING W /OUT INTERPRETATION Final Result documented in this encounter Visit Diagnoses Not on filedocumented in this encounter Additional Health Concerns Assessment Noted Time A Body Mass Index follow-up plan has been documented for the patient 12/08/2018 12:13 PM EDT PHQ-2 Depression Total Score: 0 12/09/19 19 11:50 AM EDT documented as of this encounter Care Teams Technical Inspector Relationship Specialty Start Date End Date Mare Montano RN [address] [place] [address] PCP - General Internal Medicine 11/05/18 12/12/20 Mulu Batista MD [email or web address] PCP - General Family Medicine 12/13/2002/24 Ronel Cantu PA [address] [place] [address] [email or web address] - General Physician Beater Boss 08/30/22 10/27/24 Donato Cha PA [address] [place] [address] PCP - General Physician Beater Boss 10/28/24 documented as of this encounter Additional Source Comments The information contained in this document represents components of the legal health record. It is not the complete legal health record.[facility]
--- OUTSIDE RECORDS SUMMARY | 2025-04-12 11:24 | XMS_ITS | Encounter Summary ---
Author Organization [facility] Address [address] [place] [address] Phone Care Team Providers Care Tin Whiz Machine Operator Name Role Phone Mare Montano RNphys asst Provider [phone] Mulu Batista MD Primary Care Provider [email or web address] Ronel Cantu Primary Care Provider [phone] Donato Cha Primary Care Provider + Encounter Details Date Type Department Care Team (Latest Contact Info) Description 11/14/2020 Transcribe Orders [facility] [address] [place] [address] Mark March MD [address] [place] [address] [email or web address] Rheumatoid arthritis, involving unspecified site, unspecified whether rheumatoid factor present (Primary Dx) Social History Tobacco Use Types Packs/Day Years Used Date Smoking Tobacco: Former Cigarettes 1 40 1 971 - 2010 Smokeless Tobacco: Never Alcohol Use Standard Drinks/Week Comments Yes 0 (1 standard drink = 0.6 oz pur e alcohol) socially Comments No Sex and Gender Information Value Date Recorded Sex Assigned at Female 12/13/2021 7:05 PM EDT Legal Sex Female 6:31 PM EST Gender Identity Female 12/13/2021 7:05 PM EDT Sexual Orientation Straight 12/13/2021 7: 05 PM EDT documented as of this encounter Plan of Treatment Not on file documented as of this encounter Visit Diagnoses Diagnosis Rheumatoid arthritis, involving unspecified site, unspecified whether rheumatoid factor present- Primary documented in this encounter Additional Health Concerns Assessment Noted Time A Body Mass Index follow-up plan has been documented for the patient 12/08/2018 12:13 PM EDT PHQ-2 Depression Total Score: 0 12/09/19 11:50 AM EDT documented as of this encounter Care Teams Tin Whiz Machine Operator Relationship Specialty Start Date End Date Mare Montano RN [address] [place] [address] [email or web address] PCP - General Internal Medicine 11/05/18 12/12/20 Mulu Batista MD [email or web address] PCP - General Family Medicine 12/13/2002/24 Ronel Cantu PA [address] [place] [address] [email or web address] PCP - General Physician Credit Collector 08/30/22 10/27/24 Donato Cha PA [address] [place] [address] PCP - General Physician Credit Collector 10/28/24 documented as of this encounter Additional Source Comments The information contained in this document represents components of the legal health record. It is not the complete legal health record.[facility]
--- OUTSIDE RECORDS SUMMARY | 2025-04-12 11:24 | XMS_ITS | Encounter Summary ---
Author Organization [facility] Address [address] [place] [address] Phone Care Team Providers Care Horse Rider Name Role Phone Ronel Cantu Primary Care Provider Donato Cha Primary Care Provider + Encounter Details Date Type Department Care Team (Late st Contact Info) Description 11/06/2022 Procedure Pass [address] [place] [address] Social History Tobacco Use Types Packs/Day Years [...] documented as of this encounter Visit Diagnoses Not on filedocumented in this encounter Additional Health Concerns Assessment Noted Time A Body Mass Index follow-up plan has been documented for the patient 12/08/2018 12:13 PM EDT PHQ-2 Depression Total Score: 0 12/09/19 19 11:50 AM EDT documented as of this encounter Care Teams Horse Rider Relationship Specialty Start Date End Date Ronel Cantu PA [address] [place] [phone] [email or web address] PCP - General Physician Online Marketing Director 08/30/22 10/27/24 Donato Cha PA [address] [place] [address] PCP - General Physician Online Marketing Director 10/28/24 documented as of this encounter Additional Source Comments The information contained in this document represents components of the legal health record. It is not the complete legal health record.[facility]
--- OUTSIDE RECORDS SUMMARY | 2025-04-12 11:24 | XMS_ITS | Encounter Summary ---
Author Organization [facility] Address [address] [place] [address] Phone Care Team Providers Care Ct Mri Technologist Name Role Phone Ronel Cantu Primary Care Provider Donato Cha Primary Care Provider + Encounter Details Date Type Department Care Team (Latest Contact Info) Description 11/06/2022 Transcribe Orders Virtual Department [address] [place] [address] Ronel Cantu PA [address] [place] [address] [email or web address] Breast screening (Primary Dx) Social History Tobacco Use Types Packs/Day Years Used Date Smoking Tobacco: Former Cigarettes 1 40 1 1 - 2010 Smokeless Tobacco: Never Alcohol Use [...] documented as of this encounter Results * BI MAMMOGRAM SCREENING WITH TOMOSYNTHESIS WITH CAD (BILATERAL) (11/12/2022 8:36 AM EDT) Anatomical Region Laterality Modality Breast Left, Breast Right, Breast Bilateral Bila teral Mammography 11/12/2022 4:13 PM EDT Impressions 11/13/2022 3:49 PM EDT BILATERAL BREASTS: Negative, no evidence of malignancy. Recommend bilateral annual screening mammography in 12 months. Bi-RADS: BI-RADS CATEGORY: 1 - Negative. DENSITY: The breast tissue is almost entirely fat. RIGHT RECOMMENDATION DUE DATE: 12 Months Recommendation: Right Mammography Screening LEFT RECOMMENDATION DUE DATE: 12 Months Recommendation: Left Mammography Screening Narrative 11/13/2022 3:49 PM EDT STUDY: Bilateral screening mammography with tomosynthesis and CAD TECHNIQUE: Bilateral full-field digital screening mammography is obtained and read in conjunction with computer-aided detection. Tomosynthesis as well as 2-D C view imaging were obtained. COMPARISON: Comparison made to multiple prior studies dating back to December 2003, and the most recent dated March 2019. BILATERAL BREASTS: No new dominant masses, suspicious calcifications or other abnormalities are seen. No significant interval change. Procedure Note Henry Mera MD - 11/13/2022 STUDY: Bilateral screening mammography with tomosynthesis and CAD TECHNIQUE: Bilateral full-field digital screening mammography is obtainedand read in conjunction with computer-aided detection. Tomosynthesis aswell as 2-D C view imaging were obtained. COMPARISON: Comparison made to multiple prior studies dating back to December2003, and the most recent dated March 2019. BILATERAL BREASTS: No new dominant masses, suspicious calcifications orother abnormalities are seen. No significant interval change. IMPRESSION: BILATERAL BREASTS: Negative, no evidence of malignancy. Recommendbilateral annual screening mammography in 12 months. Bi-RADS: BI-RADS CATEGORY: 1 - Negative. DENSITY: The breast tissue is almost entirely fat. RIGHT RECOMMENDATION DUE DATE: 12 Months Recommendation: Right Mammography Screening LEFT RECOMMENDATION DUE DATE: 12 Months Recommendation: Left Mammography Screening Ronel REILLY IMG MG EXAMS Final Result documented in this encounter Visit Diagnoses Diagnosis Breast screening- Primary Breast screening, unspecified Breast screening Breast screening, unspecified documented in this encounter Additional Health Concerns Assessment Noted Time A Body Mass Index follow-up plan has been documented for the patient 12/08/2018 12:13 PM EDT PHQ-2 Depression Total Score: 0 12/09/19 19 11:50 AM EDT documented as of this encounter Care Teams Ct Mri Technologist Relationship Specialty Start Date End Date Ronel Cantu PA [address] [place] [phone] [email or web address] PCP - General Physician Crop Roller 08/30/22 10/27/24 Donato Cha PA [address] [place] [address] PCP - General Physician Crop Roller 10/28/24 documented as of this encounter Additional Source Comments The information contained in this document represents components of the legal health record. It is not the complete legal health record.[facility]
--- OUTSIDE RECORDS SUMMARY | 2025-04-12 11:24 | XMS_ITS | Encounter Summary ---
Author Organization [facility] Address [address] [place] [phone] Phone Care Team Providers Care Station Helper Name Role Phone Donaot Cha Primary Care Provider + Encounter Details Date Type Department Care Team (Latest Contact Info) Description 12/08/2024 Transcribe Orders Virtual Department [address] [place] [address] Donato Cha PA [address] [place] [address] Asymptomatic menopausal state (Primary Dx) Social History Tobacco Use Types [...] as of this encounter Visit Diagnoses Diagnosis Asymptomatic menopausal state- Primary documented in this encounter Additional Health Concerns Assessment Noted Time A Body Mass Index follow-up plan has been documented for the patient 12/08/2018 12:13 PM EDT PHQ-2 Depression Total Score: 0 12/09/19 19 11:50 AM EDT documented as of this encounter Care Teams Station Helper Relationship Specialty Start Date End Date Donato Cha PA [address] [place], [place] [address] PCP - General Physician Wire Hanger 10/28/24 documented as of this encounter Additional Source Comments The information contained in this document represents components of the legal health record. It is not the complete legal health record.[facility]
--- OUTSIDE RECORDS SUMMARY | 2025-04-12 11:25 | XMS_ITS | Encounter Summary ---
Author Organization [facility] Address [address] [place] [address] Phone Care Team Providers Care Forest Ranger Technician Name Role Phone Ronel Cantu Primary Care Provider [phone] Donato Cha Primary Care Provider + Encounter Details Date Type Department Care Team ([facility] st Contact Info) Description 09/26/2023 Transcribe Orders [facility] [address] [place] [address] [place] [address] Mima Domingo MD [address] [facility] [place] [address] Rheumatoid arthritis, involving unspecified site, unspecified whether [...] documented as of this encounter Results * C-Reactive Protein (09/26/2023 11:49 AM EST) C REACTIVE PROTEIN <3.0 0.0 - 4.0 mg/L [facility] Blood 09/26/2023 11:4 9 AM EST 09/26/2023 11:52 AM EST us Mima Domingo MD LAB BLOOD ORDER IRAIS Final Result [address] [address] * (ABNORMAL) Comprehensive metabolic panel (09/26/2023 11:49 AM EST) SODIUM 140 133 - 146 mmol/L [facility] POTASSIUM 5.2(H) 3.3 - 5.1 mmol/L [facility] CHLORIDE 105 96 - 108 mmol/L [facility] CO2 27 21 - 35 mmol/L [facility] BUN 18 6 - 19 mg/dL [facility] CREATININE 1.00 0.5 - 1.5 mg/dL [facility] GLUCOSE 91 70 - 99 mg/dL [facility] ALBUMIN 3.9 3.9 - 4.8 g/dL [facility] TOTAL PROTEIN 6.5 6.5 - 8.0 g/dL [facility] CALCIUM 9.1 8.4 - 10.3 mg/dL [facility] ALKALINE PHOSPHATASE 70 39 - 117 U/L [facility] TOTAL BILIRUBIN 0.5 0.0 - 1.2 mg/dL [facility] AST 25 0 - 37 U/L [facility] ALT 37 0 - 40 U/L [facility] GLOBULIN 2.6 1 - 4.8 g/dL [facility] EGFR 59(L) >59 mL/min/1.7 3m2 [facility] Comment:Estimated glomerular filtration rate calculated using the CKD-EPI refit equation. ANION GAP 13 10 - 20 mmol/L [facility] Blood 09/26/2023 11:4 9 AM EST 09/26/2023 11:52 AM EST Mima Domingo MD LAB BLOOD ORDER IRAIS Final Result [facility] [address] [place] [address] * (ABNORMAL) CBC and differential (09/26/2023 11:49 AM EST) WBC 5.62 4.00 - 11.00 K/uL [facility] RBC 4.83 3.72 - 5.30 M/uL [facility] HGB 15.6 11.4 - 15.9 g/dL [facility] HCT 47.8(H) 34.2 - 46.8 % [facility] PLT 169 140 - 430 K/uL [facility] MCV 99.0(H) 78.0 - 97.0 fL [facility] MCH 32.3 25.0 - 33.0 pg [facility] MCHC 32.6 32.0 - 36.0 g/dL [facility] RDW 14.4 11.0 - 16.0 % [facility] MPV 11.7 8.4 - 12.8 fl [facility] DIFF METHOD Auto [facility] NEUTS 54.9 43.0 - 75.0 % [facility] LYMPHS 25.6 18.2 - 47.4 % [facility] MONOS 14.4(H) 4.00 - 11.00 % [facility] EOS 4.4 0.0 - 8.0 % [facility] BASOS 0.5 0.0 - 2.0 % [facility] Granulocytes, immature (%) 0.2 0.0 - 0.9 % [facility] ABSOLUTE NEUTS 3.08 1.80 - 7.70 K/uL [facility] ABSOLUTE LYMPHS 1.44 1.00 - 3.10 K/uL [facility] ABSOLUTE MONOS 0.81(H) 0.20 - 0.80 K/uL [facility] ABSOLUTE EOS 0.25 0.00 - 0.80 K/uL [facility] ABSOLUTE BASOS 0.03 0.00 - 0.09 K/uL [facility] Granulocytes, immature 0.01 0.00 - 0.05 K/uL [facility] Blood 09/26/2023 11:4 9 AM EST 09/26/2023 11:52 AM EST us Mima Domingo MD LAB BLOOD ORDER IRAIS Final Result [facility] [address] [place] [address] documented in this encounter Visit Diagnoses Diagnosis Rheumatoid arthritis, involving unspecified site, unspecified whether rheumatoid factor present- Primary documented in this encounter Additional Health Concerns Assessment Noted Time A Body Mass Index follow-up plan has been documented for the patient 12/08/2018 12:13 PM EDT PHQ-2 Depression Total Score: 0 12/09/19 19 11:50 AM EDT documented as of this encounter Care Teams Forest Ranger Technician Relationship Specialty Start Date End Date Ronel Cantu PA [address] [place] [address] [email or web address] PCP - General Physician Radio Board Operator 08/30/22 10/27/24 Donato Cha PA [address] [place] [address] PCP - General Physician Radio Board Operator 10/28/24 documented as of this encounter Additional Source Comments The information contained in this document represents components of the legal health record. It is not the complete legal health record.[facility]
--- OUTSIDE RECORDS SUMMARY | 2025-04-12 11:25 | XMS_ITS | Encounter Summary ---
Author Organization [facility] Address [address] [place] [phone] Phone Care Team Providers Care Lead Generation Specialist Name Role Phone Mare Montano RNchip person Provider Mulu Batista MD Primary Care Provider [email or web address] Ronel Cantu Primary Care Provider [phone] Donato Cha Primary Care Provider + Encounter Details Date Type Department Care Team (Latest Contact Info) Description 07/19/2020 Transcribe Orders [facility] [address] [place] [address] [place] [address] Mark March MD [address] [place] [phone] [email or web address] Rheumatoid arthritis, involving unspecified site, unspecified whether [...] documented as of this encounter Results * (ABNORMAL) C-Reactive Protein (07/19/2020 10:03 AM EST) C REACTIVE PROTEIN 8.1(H) 0.0 - 4.0 mg/L [facility] Blood 07/19/2020 10:0 3 AM EST 07/19/2020 10:05 AM EST us Mark March MD LAB BLOOD ORDERABLES Final Re sult Performing Organization Address [facility] de Phone Number [address] [address] * Sedimentation rate (ESR) (07/19/2020 10:03 AM EST) Pathologist [facility] ESR 14 0 - 30 mm/h [facility] Blood 07/19/2020 10:0 3 AM EST 07/19/2020 10:05 AM EST us Mark March MD LAB BLOOD ORDERABLES Final Re sult Performing Organization Address [facility] de Phone Number [address] [address] * (ABNORMAL) Comprehensive metabolic panel (07/19/2020 10:03 AM EST) Pathologist [facility] SODIUM 139 133 - 146 mmol/L [facility] POTASSIUM 4.3 3.3 - 5.1 mmol/L [facility] CHLORIDE 104 96 - 108 mmol/L [facility] CO2 26 21 - 35 mmol/L [facility] BUN 21(H) 6 - 19 mg/dL [facility] CREATININE 0.80 0.5 - 1.5 mg/dL [facility] GLUCOSE 105(H) 70 - 99 mg/dL [facility] ALBUMIN 3.6(L) 3.9 - 4.8 g/dL [facility] TOTAL PROTEIN 6.6 6.5 - 8.0 g/dL [facility] CALCIUM 9.0 8.4 - 10.3 mg/dL [facility] ALKALINE PHOSPHATASE 91 39 - 117 U/L [facility] TOTAL BILIRUBIN 0.3 0.0 - 1.2 mg/dL [facility] AST 16 0 - 37 U/L [facility] ALT 19 0 - 40 U/L [facility] GLOBULIN 3.0 1 - 4.8 g/dL [facility] EGFR 74 >59 mL/min/1.7 3m2 [facility] Comment:Estimated glomerular filtration rate calculated using the CKD-EPI equation. ANION GAP 13 10 - 20 mmol/L [facility] Blood 07/19/2020 10:0 3 AM EST 07/19/2020 10:05 AM EST us Mark March MD LAB BLOOD ORDERABLES Final Re sult Performing Organization Address City/[facility]/ZIP Co de Phone Number [address] [phone] * CBC (07/19/2020 10:03 AM EST) WBC 7.20 4.00 - 11.00 K/uL [facility] Comment:Note Reference Range updates to all CBC and Differential results. RBC 4.61 3.72 - 5.30 M/uL [facility] HGB 14.5 11.4 - 15.9 g/dL [facility] Comment:Note updated Referen ce Ranges for all CBC and Differential results. HCT 44.0 34.2 - 46.8 % [facility] PLT 241 140 - 430 K/uL [facility] MCV 95.4 78.0 - 97.0 fL [facility] MCH 31.5 25.0 - 33.0 pg [facility] MCHC 33.0 32.0 - 36.0 g/dL [facility] RDW 13.7 11.0 - 16.0 % [facility] MPV 11.1 8.4 - 12.8 [facility] NRBC 0.00 0 /100 WBCs [facility] ABSOLUTE NRBC 0.00 0 K/uL [facility] Blood 07/19/2020 10:0 3 AM EST 07/19/2020 10:05 AM EST us Mark March MD LAB BLOOD ORDERABLES Final Re sult Performing Organization Address City/[facility]/ZIP Co de Phone Number [address] [address] documented in this encounter Visit Diagnoses Diagnosis Rheumatoid arthritis, involving unspecified site, unspecified whether rheumatoid factor present- Primary documented in this encounter Additional Health Concerns Assessment Noted Time A Body Mass Index follow-up plan has been documented for the patient 12/08/2018 12:13 PM EDT PHQ-2 Depression Total Score: 0 12/09/19 19 11:50 AM EDT documented as of this encounter Care Teams Lead Generation Specialist Relationship Specialty Start Date End Date Mare Montano RN [address] [place] [address] [email or web address] PCP - General Internal Medicine 11/05/18 12/12/20 Mulu Batista MD [email or web address] PCP - General Family Medicine 12/13/2002/24 Ronel Cantu PA [address] [place] [address] [email or web address] PCP - General Physician Wire Weaving Loom Setter 08/30/22 10/27/24 Donato Cha PA [address] [place] [address] PCP - General Physician Wire Weaving Loom Setter 10/28/24 documented as of this encounter Additional Source Comments The information contained in this document represents components of the legal health record. It is not the complete legal health record.[facility]
== END 2025-04-12 10:35 | disposition home or self-care (01) ==
LOC: HO.RHES 09:45
PROVIDERS: PCP Student in an Organized Health Care Education/Training Program; Visit Provider Student in an Organized Health Care Education/Training Program
DX: M06.9 Rheumatoid arthritis, unspecified (principal); M17.0 Bilateral primary osteoarthritis of knee; M81.0 Age-related osteoporosis without current pathological fracture; Z51.81 Encounter for therapeutic drug level monitoring; Z79.620 Long term (current) use of immunosuppressive biologic; Z79.631 Long term (current) use of antimetabolite agent
CPT/HCPCS: 99214; G2211

== ENCOUNTER → 2025-04-12 09:44 | Outpatient (BNVA) | payer MEDICARE, OTHER, SELFPAY | PROVIDERS: PCP Student in an Organized Health Care Education/Training Program; Visit Provider Student in an Organized Health Care Education/Training Program | DX: E55.9 Vitamin D deficiency, unspecified (principal); M06.9 Rheumatoid arthritis, unspecified; M17.0 Bilateral primary osteoarthritis of knee; M81.0 Age-related osteoporosis without current pathological fracture; Z51.81 Encounter for therapeutic drug level monitoring; Z79.631 Long term (current) use of antimetabolite agent; Z79.620 Long term (current) use of immunosuppressive biologic | CPT/HCPCS: 99212 ==